=== PATIENT | female | born 1935 | race Caucasian/White ===

== ENCOUNTER 2016-05-14 13:42 | Emergency (ER) | payer MEDICARE ==
--- NOTE | 2016-05-14 16:16 | ERNOTE ---
Medical Problem HPI - Narrative Date of Service: 05/14/16 - General Chief Complaint: General Assessment Time Seen by Provider: 05/14/16 15:04 Source: patient Exam Limitations: no limitations - Immun/Allergies/Home Medications Immunizations: IMMUNIZATION HX Immunizations Up to Date Yes History of Influenza Vaccine No Hx Pneumococcal Vaccination No Allergies/Adverse Reactions: Allergies Sulfa (Sulfonamide Antibiotics) Allergy (Unknown, Verified 05/14/16 13:54) Home Medications: HOME MEDICATIONS NK [No Home Medication] 05/14/16 [Last Taken Unknown] - History of Present History Narrative: 81-year-old female presenting to the emergency room today because she missed her doctor's appointment. Patient states she was seeing her doctor for left ear fullness that she has had for 2 years. States that ear fullness comes and goes. Date (Duration): 05/14/16 Timing: unsure, other - has been going on for about 2 years Review of Systems - Review of Systems Constitutional: Present: no symptoms reported. Absent: recent illness, fever, chills, diaphoresis, weakness, fatigue, decreased activity level EYE: Present: no symptoms reported ENT: Present: See HPI. Absent: ear pain, pulling on ears, nasal drainage, throat swelling Respiratory: Present: no symptoms reported Cardiology: Present: no symptoms reported Gastrointestinal/Abdominal: Present: no symptoms reported Genitourinary: Present: no symptoms reported Musculoskeletal: Present: no symptoms reported Skin: Present: no symptoms reported Neurological: Present: no symptoms reported Endocrine: Present: no symptoms reported Hematologic/Lymphatic: Present: no symptoms reported Psych: Present: no symptoms reported - Patient's Past Medical History Patient History - Medical: No pertinent hx Patient History - Cardiac/Respiratory: No pertinent hx Patient History - Cancer: No Hx of Cancer Patient History - Surgical Procedures: No surgical history Patient History - Other: AIDS LMP (females 10-50): Menopausal - Social History Living Situations: home Psych History: No pertinent hx Smoking Status: Former smoker - Immunizations Immunizations Up to Date: Yes Hx Pneumococcal Vaccination: No History of Influenza Vaccine: No Physical Exam - Physical Exam General Appearance: Present: wd/wn, alert, no apparent distress Eye Exam: Normal inspection: bilateral Ears, Nose, Throat: Present: normal ENT inspection - small amt of ear wax in right ear, left TM has some scaring Neck: Present: normal inspection Respiratory: Present: no respiratory distress Cardiovascular/Chest: Present: regular rate, rhythm Gastrointestinal/Abdominal: Present: normal bowel sounds Back Exam: Present: normal inspection Extremity Exam: Present: normal inspection Neurological Exam: Present: alert, oriented, normal mood/affect Skin Exam: Present: normal color Lymphatic Exam: Present: no adenopathy ED Progress - Vital Signs Patient's Vital Signs:: I have reviewed the patient's vital signs. Vital Signs: Vital Signs 05/14/16 13:48 Temperature 37.0 C Pulse Rate 103 H Respiratory 16 Rate Blood Pressure 127/71 O2 Sat by Pulse 96 Oximetry - Progress/Reassessment Chief Complaint: General Assessment Progress:: Unchanged Departure - Departure Clinical Impression: Ear congestion Qualifiers: Laterality: left Qualified Code(s): H93.8X2 - Other specified disorders of left ear Disposition: Home Follow Up Needed Condition: Stable Instructions: Allergic Rhinitis Additional Instructions: Continue previous home medications. Patient may try Flonase or Nasacort over- the-counter as directed for the next 5 days to see if it alleviates ear fullness. Patient is to follow up with primary care provider in the next week. Please return to the emergency room if conditions worsen.
[2016-05-14 17:19] VITALS: BP 124/70
== END 2016-05-14 16:17 | disposition home or self-care (01) ==
LOC: ER 13:42
DX: H93.8X2 Other specified disorders of left ear (principal); Z87.891 Personal history of nicotine dependence

== ENCOUNTER 2017-09-06 01:09 | Inpatient (IN) ==
--- NOTE | 2017-09-06 01:36 | ERNOTE ---
Neuro HPI ER Record Presenting Symptoms: weakness, confusion, difficulty walking Time Seen by Provider: 09/06/17 01:27 Source: family Exam Limitations: clinical condition, hard of hearing Immunizations: IMMUNIZATION HX Immunizations Up to Date Yes History of Influenza Vaccine No Hx Pneumococcal Vaccination No Allergies/Adverse Reactions: Allergies Allergy/AdvReac Type Severity Reaction Status Date / Time Sulfa (Sulfonamide Allergy Unknown Verified 09/06/17 02:15 Antibiotics) Home Medications: HOME MEDICATIONS NK [No Home Medication] 05/14/16 [Last Taken Unknown] - History of Present Illness Narrative: Pt had cellulitis last month and Onset: gradual onset Severity: moderate - Character of Deficits New weakness: Present: general (diffuse) Additional Deficits: Present: decrease ability to stand Baseline Cognition: Present: alert but disoriented to time Associated Symptoms: Reports: confused Prior Treament: Reports: recently seen, treated by physician - for cellulitis Review of Systems - Review of Systems Constitutional: Present: fatigue, malaise, decreased activity level. Absent: recent illness, fever EYE: Absent: vision changes ENT: Absent: nose congestion, nasal drainage Respiratory: Present: shortness of breath, orthopnea. Absent: cough Cardiology: Present: palpitations, edema. Absent: chest pain, syncope Gastrointestinal/Abdominal: Absent: nausea, vomiting Genitourinary: Absent: frequency, pain, dysuria Musculoskeletal: Absent: back pain, muscle pain Skin: Present: rash, change in color - b/l LE. Neurological: Present: dizziness/light-headedness Endocrine: Present: excessive sweating, flushing Psych: Present: anxiety Social History: Preferred Language Greek Smoking Status Former smoker Psych History No pertinent hx Alcohol Use none Drug Use none Physical Exam - Physical Exam General Appearance: Present: wd/wn, alert, mild distress Head Exam: Present: normal inspection, no evidence of injury Ears, Nose, Throat: Present: normal ENT inspection Neck: Present: normal inspection, nontender Respiratory: Present: normal breath sounds, no accessory muscle use, lungs clear Cardiovascular/Chest: Present: no murmur, tachycardia Gastrointestinal/Abdominal: Present: normal bowel sounds, nontender, nondistended Back Exam: Present: no CVA tenderness Extremity Exam: Present: extremity edema Neurological Exam: Present: alert, no motor/sensory deficits, devops II-XII nml as tested, other - some confusion at times, not consistent Skin Exam: Present: skin rash - erythema to both LE below the knee with some weeping. no open ulcers. Lymphatic Exam: Present: no adenopathy [place] Coma Scale - Assess Eye Opening: To Voice Motor: Obeys Commands Verbal: Oriented - Total Coma Scale Total: 14 ED Progress - Results and Orders Patient's Lab Results:: I have reviewed the patient's lab results. Results and Orders: Laboratory Tests 09/06/17 09/06/17 09/06/17 01:40 01:40 01:40 WBC 16.4 H Hgb 13.9 Hct 45.9 Plt Count 426 Neutrophils % 86.2 H D-Dimer 2.42 H Sodium 142 Potassium 4.3 Chloride 106 BUN 13 Creatinine 0.89 Random Glucose 152 H Lactic Acid, Venous Calcium 8.3 Total Bilirubin 0.4 AST 28 ALT 22 Alkaline Phosphatase 81 Total Protein 7.0 Albumin 2.9 L Urine Color Urine Appearance Urine pH Ur Specific [place] Urine Protein Urine Glucose (UA) Urine Ketones Urine Blood Urine Nitrate Urine Bilirubin Urine Urobilinogen Ur Leukocyte Esterase Urine RBC Urine WBC Ur Epithelial Cells Urine Bacteria Urine Culture Comments 09/06/17 09/06/17 01:40 02:40 WBC Hgb Hct Plt Count Neutrophils % D-Dimer Sodium Potassium Chloride BUN Creatinine Random Glucose Lactic Acid, Venous 1.8 Calcium Total Bilirubin AST ALT Alkaline Phosphatase Total Protein Albumin Urine Color Yellow Urine Appearance Clear Urine pH 8.0 H Ur Specific [place] 1.020 Urine Protein Negative Urine Glucose (UA) Negative Urine Ketones 5 Urine Blood Negative Urine Nitrate Negative Urine Bilirubin Negative Urine Urobilinogen Normal Ur Leukocyte Esterase Negative Urine RBC None seen Urine WBC None seen Ur Epithelial Cells None seen Urine Bacteria None seen Urine Culture Comments Culture to follow - Vital Signs Patient's Vital Signs:: I have reviewed the patient's vital signs. Vital Signs: Vital Signs 09/06/17 01:18 Temperature 37.9 C Pulse Rate 129 H Respiratory Rate 36 H Blood Pressure 148/68 O2 Sat by Pulse Oximetry 100 - EKG EKG: supraventricular tachycardia, RBBB EKG read: Interp. 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 - Progress/Reassessment Chief Complaint: Altered Mental Status Progress:: Improved Progress Note-Subjective: 09/06/17 04:29 Spoke to [facility] hospitalist, she agrees to admit for cellulitis , failure of out pt therapy and hypoxia. 09/06/17 04:34 pt blood pressure did go down to 80/ 47 and IV fluids were reinitiated. Blood pressure immediately increased to 116/72. Departure Clinical Impression: Hypoxia Lower extremity cellulitis Qualifiers: Laterality: unspecified laterality Qualified Code(s): L03.119 - Cellulitis of unspecified part of limb - Departure Disposition: Still a patient Condition: Fair
[2017-09-06 01:49] LABS: Hematocrit 45.9 % (37.0-47.0); Hemoglobin 13.9 gm/dL (12.5-16.0); Mean Cell Volume 95.8 fl (78-100); Mean Corpuscular Hgb Conc 30.3 g/dl (32-36); Mean Platelet Volume 9.7 fl (8-12.5); Neutrophil # 14.1 K/mm3 (1.3-6.0); Neutrophil % 86.2 % (42-75.0); Platelet Count 426 K/mm3 (150-450); Red Blood Count 4.79 M/mm3 (4.2-5.4); Red Cell Distribution Width 14.9 % (11.5-14.0); White Blood Count 16.4 K/mm3 (4.0-10.5)
[2017-09-06 02:02] LABS: Albumin * 2.9 gm/dl (3.4-5.0); Anion Gap 10.5 mmol/L (6.8-13.8); BUN/Creatinine Ratio 14.6 (9.0-21.6); Bilirubin, Total 0.4 mg/dL (0.0-1.1); Ca. Corrected For Albumin 8.9 mg/dL (8.4-10.2); Calcium * 8.3 mg/dL (7.9-10.9); Carbon Dioxide 29.8 mmol/L (24-32.6); Potassium 4.3 mmol/L (3.4-4.6)
[2017-09-06 02:55] LABS: Urine Bilirubin Negative (NEGATIVE); Urine Blood Negative /ul (NEGATIVE); Urine Ketone 5 mg/dL (NEGATIVE); Urine Nitrite Negative (NEGATIVE); Urine Protein Negative (NEGATIVE); Urine Urobilinogen Normal (NORMAL)
[2017-09-06 03:00] LABS: Urine Appearance Clear (CLEAR); Urine Bacteria None Seen; Urine Color Yellow; Urine RBC None Seen /hpf (0-5); Urine WBC None Seen /hpf (0-5)
[2017-09-06] MEDS ORDERED: NORMAL SALINE 1,000 ML IV ONE ×2 (04:04→10:06)
[2017-09-06] MEDS ORDERED: PIPERACILLIN SODIUM/TAZOBACTAM 3.375 GM in DEXTROSE 5 % IN WATER 100 ML IV ONE ×2 (04:45)
[2017-09-06] MEDS ORDERED: NORMAL SALINE 1,000 ML IV PRN (06:00)
[2017-09-06] MEDS ORDERED: ACETAMINOPHEN 500 MG TABLET PO PRN (06:01)
--- NOTE | 2017-09-06 07:07 | HP ---
Chief Complaint - Chief Complaint Date of Service: 09/06/17 Time of Service: 06:33 Chief Complaint: weakness History of Present Illness: Pt is an 82 yr old female who per family has no prior medical history. She comes in this morning with family who states she lives alone in a trailer with neighboring family who frequently check in on her. They believe she has underlying dementia, but haven't followed up with their PCP regarding this, she does see Rosina Richmond here in [facility]. Per her daughter she has been treated within the past month for bilateral lower extremity cellulitis with Cephalexin she believes it was getting better until today the patient complained of not feeling well-no specific complaint and was unable to walk to get in the car so an EMS was called. Pt is an overall poor historian, she is unable to provide any details to the event. Her daughter describes her breathing rapid and she was not responding. In the ER work up consisted of a chest CT for elevated D- dime which was negative for PE, infiltrate or PN. She was hypotensive with SBP in the 80's, EKG revealed tachycardia with a rate of 129. Initial troponin elevated at 0.25, initial lactic acid was 1.8, but on repeat was elevated at 2.8. WBC elevated at 16.4. Blood cultures are pending, UA was negative. 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 Medical History (Last Updated 09/06/17 @ 05:20 by Pallavi Costa RN) Hypercholesteremia Family History: Family History (Last Updated 09/06/17 @ 05:21 by Pallavi Costa RN) Mother Diabetes Social History: Patient Lives/Resources Home Utilized Occupation retired Preferred Language Sinhala Do you have any nondenominational or Yes: Roman Catholic cultural preference? Smoking Status Former smoker Have you smoked in the past 12 No months Psych History No pertinent hx Alcohol Use none Drug Use none Review Of Systems (GEN) - Review of Systems Generalized/Overall Review: Present: Weakness, Malaise EENTM: Present: No Symptoms Reported Respiratory: Present: Cough, Shortness of Breath, Wheezing Cardiac: Present: No Symptoms Reported Abdominal: Present: No Symptoms Reported Genitourinary: Present: No Symptoms Reported Musculoskeletal: Present: Back Pain Neurological: Present: No Symptoms Reported Skin: Present: Rash - jay lower extremities, Change in Color Endocrine: Present: No Symptoms Reported Immunizations: IMMUNIZATION HX Immunizations Up to Date Yes History of Influenza Vaccine No Hx Pneumococcal Vaccination No Allergies/Adverse Reactions: Allergies Allergy/AdvReac Type Severity Reaction Status Date / Time Sulfa (Sulfonamide Allergy Unknown Verified 09/06/17 05:22 Antibiotics) Home Medications: HOME MEDICATIONS Acetaminophen [Tylenol] 500 mg PO Q6H PRN 09/06/17 [Last Taken Unknown] Exam - Exam Vital Signs: Vital Signs - Last Taken Temp 37.0 C 09/06/17 05:34 Pulse 108 H 09/06/17 05:34 Resp 24 H 09/06/17 05:34 BP 89/69 L 09/06/17 05:34 Pulse Ox 100 09/06/17 05:34 Constitutional: Present: Alert, Cooperative, Elderly ENT Exam: Present: normal ENT inspection, hard of hearing, dry mucous membranes Eye Exam: bilateral eye: normal inspection Neck: Present: non-tender, full range of motion, supple Back Exam: Present: normal inspection, no vertebral tenderness, decreased range of motion, muscle spasm Breasts: Present: Exam deferred Respiratory: Present: chest non-tender, no respiratory distress, no accessory muscle use, decreased breath sounds Cardiovascular/Chest: Present: normal peripheral pulses, no chest tenderness, no edema, no gallop, no JVD, no murmur, tachycardia Peripheral Pulses: dorsalis-pedis (R): 2+, dorsalis-pedis (L): 2+, radial (R): 2 +, radial (L): 2+ Abdomen: Present: Normal bowel sounds, soft, nontender, nondistended, no rebound tenderness, no hepatospenomegaly, no masses Extremity: Present: normal range of motion, no pedal edema, no calf tenderness, inflammation, leg pain Skin Exam: Present: other - erythema and dryness Lymphatic: Present: no adenopathy Neurologic: Present: alert, motor weakness Appearance: Present: appropriate appearance, appropriate insight, neat, no memory impairment Eye contact: Present: cooperative, good eye contact, normal speech Thoughts: Present: no apparent hallucination Diagnostic Studies: Abnormal Lab Results 09/06/17 09/06/17 09/06/17 Range/Units 01:40 01:40 01:40 WBC 16.4 H (4.0-10.5) K/mm3 MCHC 30.3 L (32-36) g/dl RDW 14.9 H (11.5-14.0) % Immature Gran % (Auto) 0.70 H (0.001-0.429) % Immature Gran # (Auto) 0.11 H (0.000-0.0310) K/mm3 Neutrophils % 86.2 H (42-75.0) % Lymphocytes % 7.3 L (20-51) % Neutrophils # 14.1 H (1.3-6.0) K/mm3 Lymphocytes # 1.20 L (1.5-3.5) k/mm3 D-Dimer 2.42 H (0.19-0.49) ug/mL Plasma Sodium 143 H (130-142) mmol/L Random Glucose 152 H (70-110) mg/dL Lactic Acid, Venous (0.4-2.0) mmol/L Troponin I (0.00-0.10) ng/ml Albumin 2.9 L (3.4-5.0) gm/dl Urine pH (5.0-7.0) pH 09/06/17 09/06/17 09/06/17 Range/Units 01:40 02:40 05:46 WBC (4.0-10.5) K/mm3 MCHC (32-36) g/dl RDW (11.5-14.0) % Immature Gran % (Auto) (0.001-0.429) % Immature Gran # (Auto) (0.000-0.0310) K/mm3 Neutrophils % (42-75.0) % Lymphocytes % (20-51) % Neutrophils # (1.3-6.0) K/mm3 Lymphocytes # (1.5-3.5) k/mm3 D-Dimer (0.19-0.49) ug/mL Plasma Sodium (130-142) mmol/L Random Glucose (70-110) mg/dL Lactic Acid, Venous 2.5 H* (0.4-2.0) mmol/L Troponin I 0.251 H* (0.00-0.10) ng/ml Albumin (3.4-5.0) gm/dl Urine pH 8.0 H (5.0-7.0) pH Laboratory Results WBC 16.4 K/mm3 (4.0-10.5) H 09/06/17 01:40 RBC 4.79 M/mm3 (4.2-5.4) 09/06/17 01:40 Hgb 13.9 gm/dL (12.5-16.0) 09/06/17 01:40 Hct 45.9 % (37.0-47.0) 09/06/17 01:40 MCV 95.8 fl (78-100) 09/06/17 01:40 MCH 29.0 pg (27-31) 09/06/17 01:40 MCHC 30.3 g/dl (32-36) L 09/06/17 01:40 RDW 14.9 % (11.5-14.0) H 09/06/17 01:40 Plt Count 426 K/mm3 (150-450) 09/06/17 01:40 MPV 9.7 fl (8-12.5) 09/06/17 01:40 Immature Gran % (Auto) 0.70 % (0.001-0.429) H 09/06/17 01:40 Immature Gran # (Auto) 0.11 K/mm3 (0.000-0.0310) H 09/06/17 01:40 Neutrophils % 86.2 % (42-75.0) H 09/06/17 01:40 Lymphocytes % 7.3 % (20-51) L 09/06/17 01:40 Monocytes % 4.4 % (0.0-9) 09/06/17 01:40 Eosinophils % 1.1 % (0.0-3.0) 09/06/17 01:40 Basophils % 0.3 % (0.0-1.0) 09/06/17 01:40 Nucleated RBC % 0.0 k/mm3 (0-1) 09/06/17 01:40 Neutrophils # 14.1 K/mm3 (1.3-6.0) H 09/06/17 01:40 Lymphocytes # 1.20 k/mm3 (1.5-3.5) L 09/06/17 01:40 Monocytes # 0.7 k/mm3 (0.0-1.0) 09/06/17 01:40 Eosinophils # 0.2 k/mm3 (0.0-0.7) 09/06/17 01:40 Absolute Basophils 0.1 k/mm3 (0.0-0.1) 09/06/17 01:40 D-Dimer 2.42 ug/mL (0.19-0.49) H 09/06/17 01:40 Sodium 142 mmol/L (132-142) 09/06/17 01:40 Plasma Sodium 143 mmol/L (130-142) H 09/06/17 01:40 Potassium 4.3 mmol/L (3.4-4.6) 09/06/17 01:40 Chloride 106 mmol/L (97-106) 09/06/17 01:40 Carbon Dioxide 29.8 mmol/L (24-32.6) 09/06/17 01:40 Anion Gap 10.5 mmol/L (6.8-13.8) 09/06/17 01:40 BUN 13 mg/dL (3-23) 09/06/17 01:40 Creatinine 0.89 mg/dL (0.4-1.4) 09/06/17 01:40 Est GFR (Non-Af Amer) 65 mL/min (60-130) 09/06/17 01:40 BUN/Creatinine Ratio 14.6 (9.0-21.6) 09/06/17 01:40 Random Glucose 152 mg/dL (70-110) H 09/06/17 01:40 Lactic Acid, Venous 2.5 mmol/L (0.4-2.0) H* 09/06/17 05:46 Calcium 8.3 mg/dL (7.9-10.9) 09/06/17 01:40 Calcium Adj for Albumin 8.9 mg/dL (8.4-10.2) 09/06/17 01:40 Total Bilirubin 0.4 mg/dL (0.0-1.1) 09/06/17 01:40 AST 28 U/L (0-48) 09/06/17 01:40 ALT 22 U/L (19-67) 09/06/17 01:40 Alkaline Phosphatase 81 U/L (50-170) 09/06/17 01:40 Troponin I 0.251 ng/ml (0.00-0.10) H* 09/06/17 01:40 Total Protein 7.0 gm/dL (6.2-8.2) 09/06/17 01:40 Albumin 2.9 gm/dl (3.4-5.0) L 09/06/17 01:40 Urine Color Yellow 09/06/17 02:40 Urine Appearance Clear (CLEAR) 09/06/17 02:40 Urine pH 8.0 pH (5.0-7.0) H 09/06/17 02:40 Ur Specific [place] 1.020 SP.GR. (1.005-1.010) 09/06/17 02:40 Urine Protein Negative mg/dL (NEGATIVE) 09/06/17 02:40 Urine Glucose (UA) Negative mg/dL (NEGATIVE) 09/06/17 02:40 Urine Ketones 5 mg/dL (NEGATIVE) 09/06/17 02:40 Urine Blood Negative /ul (NEGATIVE) 09/06/17 02:40 Urine Nitrate Negative (NEGATIVE) 09/06/17 02:40 Urine Bilirubin Negative mg/dl (NEGATIVE) 09/06/17 02:40 Urine Urobilinogen Normal EU/dl (NORMAL) 09/06/17 02:40 Ur Leukocyte Esterase Negative /ul (NEGATIVE) 09/06/17 02:40 Urine RBC None seen /hpf (0-5) 09/06/17 02:40 Urine WBC None seen /hpf (0-5) 09/06/17 02:40 Ur Epithelial Cells None seen /hpf (0-5) 09/06/17 02:40 Urine Bacteria None seen (NONE) 09/06/17 02:40 Urine Culture Comments Culture to follow 09/06/17 02:40 Assessment/Plan - Assessment/Plan (1) Sepsis associated hypotension Assessment: Unclear etiology, recent cellulitis of bilateral lower extremities with failed outpt treatment. Blood cultures pending. Hypotension improved with IV fluid. - 0.9NS @ 126ml/hr - Repeat lactic in 4H - VS Q4H - Vancomycin 1gm [id number] to dose Problem: Acute (2) Elevated troponin Assessment: - Telemetry - Repeat troponin 6H post initial - Repeat EKG with CP Problem: Acute (3) Lower extremity cellulitis Assessment: Failed outpt treatment with Cephalexin, will add Vancomycin for broad spectrum antibiotic with MRSA coverage. Problem: Chronic Qualifiers: Laterality: unspecified laterality Qualified Code(s): L03.119 - Cellulitis of unspecified part of limb (4) Back pain Assessment: No recent trauma or falls, however poor historian. Per family this is chronic which she takes Tylenol for at home. If worsens would consider imaging to r/o fx. - Tylenol PRN - K pad for comfort Problem: Chronic Qualifiers: Back pain location: low back pain
[2017-09-06] MEDS ORDERED: VANCOMYCIN HCL 0.75 GM in DEXTROSE 5 % IN WATER 250 ML IV SCH ×2 (07:30)
[2017-09-06] MEDS ORDERED: SACCHAROMYCES BOULARDII 250 MG CAPSULE PO SCH (09:00)
[2017-09-06] MEDS ORDERED: ASPIRIN 81 MG TAB.CHEW PO STA (10:09)
[2017-09-06] MEDS ORDERED: CLOPIDOGREL BISULFATE 75 MG TABLET PO STA (10:09)
[2017-09-06] MEDS ORDERED: HEPARIN SODIUM,PORCINE 5,000 UNITS/ML VIAL IV ONE (10:09)
--- NOTE | 2017-09-06 10:20 | DS ---
Transfer Discharge Summary - Diagnosis(s)/Problems (1) Lower extremity cellulitis Problem: Acute (2) Sepsis associated hypotension Problem: Acute (3) Elevated troponin Problem: Acute (4) AMI (acute myocardial infarction) Problem: Suspected - Course Description of Stay: Alva Chino is an 82-year-old female who was in her usual state of health at home. She lives by herself and a mobile home and is looked after by her children and grandchildren. Over the past month she has become more demented. On admission she was unable to stand and obviously her ADLs have declined to the point she could not care for herself. She was brought to the hospital per EMS. She was found to have cellulitis in both lower extremities there are red hot to touch but not draining. She was hypotensive with systolic of 80 and tachycardia with rate of 129. Her initial troponin level was 0.25 but today's is now 2.497. Her lactic acid initially was 1.8 but has climbed to 2.8. The white count is 16,400 with 86% neutrophils and 11% bands. Her d- dimer is also elevated at 2.42. This morning she has become more hypotensive with systolic dropping into the low 70s systolic. She is demented and unable to communicate with us. She has been receiving IV fluids and IV antibiotics through the night. 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 There is a lot of tremor artifact. We have started bolusing with IV fluids and her last pressure systolic is 79. Since the patient is a full code, is hemodynamically stable, has probably had a cardiac event, she will need to be transferred to a tertiary facility and has interventional capabilities. The patient's daughter who is her POA and she has given consent to transfer to [facility] in [place]. Procedures Performed: none Procedures: We have started the ACS protocol with aspirin and Plavix and heparin. - Results and Findings Results and Findings: Laboratory Results - last 24 hr 09/06/17 09/06/17 09/06/17 01:40 01:40 01:40 WBC 16.4 H RBC 4.79 Hgb 13.9 Hct 45.9 MCV 95.8 MCH 29.0 MCHC 30.3 L RDW 14.9 H Plt Count 426 MPV 9.7 Immature Gran % (Auto) 0.70 H Immature Gran # (Auto) 0.11 H Neutrophils % 86.2 H Lymphocytes % 7.3 L Monocytes % 4.4 Eosinophils % 1.1 Basophils % 0.3 Nucleated RBC % 0.0 Neutrophils # 14.1 H Lymphocytes # 1.20 L Monocytes # 0.7 Eosinophils # 0.2 Absolute Basophils 0.1 D-Dimer 2.42 H Sodium 142 Plasma Sodium 143 H Potassium 4.3 Chloride 106 Carbon Dioxide 29.8 Anion Gap 10.5 BUN 13 Creatinine 0.89 Est GFR (Non-Af Amer) 65 BUN/Creatinine Ratio 14.6 Random Glucose 152 H Lactic Acid, Venous Calcium 8.3 Calcium Adj for Albumin 8.9 Total Bilirubin 0.4 AST 28 ALT 22 Alkaline Phosphatase 81 Troponin I Total Protein 7.0 Albumin 2.9 L Urine Color Urine Appearance Urine pH Ur Specific [place] Urine Protein Urine Glucose (UA) Urine Ketones Urine Blood Urine Nitrate Urine Bilirubin Urine Urobilinogen Ur Leukocyte Esterase Urine RBC Urine WBC Ur Epithelial Cells Urine Bacteria Urine Culture Comments 09/06/17 09/06/17 09/06/17 01:40 01:40 02:40 WBC RBC Hgb Hct MCV MCH MCHC RDW Plt Count MPV Immature Gran % (Auto) Immature Gran # (Auto) Neutrophils % Lymphocytes % Monocytes % Eosinophils % Basophils % Nucleated RBC % Neutrophils # Lymphocytes # Monocytes # Eosinophils # Absolute Basophils D-Dimer Sodium Plasma Sodium Potassium Chloride Carbon Dioxide Anion Gap BUN Creatinine Est GFR (Non-Af Amer) BUN/Creatinine Ratio Random Glucose Lactic Acid, Venous 1.8 Calcium Calcium Adj for Albumin Total Bilirubin AST ALT Alkaline Phosphatase Troponin I 0.251 H* Total Protein Albumin Urine Color Yellow Urine Appearance Clear Urine pH 8.0 H Ur Specific [place] 1.020 Urine Protein Negative Urine Glucose (UA) Negative Urine Ketones 5 Urine Blood Negative Urine Nitrate Negative Urine Bilirubin Negative Urine Urobilinogen Normal Ur Leukocyte Esterase Negative Urine RBC None seen Urine WBC None seen Ur Epithelial Cells None seen Urine Bacteria None seen Urine Culture Comments Culture to follow 09/06/17 09/06/17 09/06/17 05:46 08:15 08:15 WBC RBC Hgb Hct MCV MCH MCHC RDW Plt Count MPV Immature Gran % (Auto) Immature Gran # (Auto) Neutrophils % Lymphocytes % Monocytes % Eosinophils % Basophils % Nucleated RBC % Neutrophils # Lymphocytes # Monocytes # Eosinophils # Absolute Basophils D-Dimer Sodium Plasma Sodium Potassium Chloride Carbon Dioxide Anion Gap BUN Creatinine 0.91 Est GFR (Non-Af Amer) BUN/Creatinine Ratio Random Glucose Lactic Acid, Venous 2.5 H* Calcium Calcium Adj for Albumin Total Bilirubin AST ALT Alkaline Phosphatase Troponin I 2.497 H* Total Protein Albumin Urine Color Urine Appearance Urine pH Ur Specific [place] Urine Protein Urine Glucose (UA) Urine Ketones Urine Blood Urine Nitrate Urine Bilirubin Urine Urobilinogen Ur Leukocyte Esterase Urine RBC Urine WBC Ur Epithelial Cells Urine Bacteria Urine Culture Comments - Medications Medications: Active Medications Sodium Chloride (Sodium Chloride 0.9%) 1,000 mls @ 126 mls/hr IV .Q7H57M PRN PRN Reason: HYDRATION Stop: 10/06/17 06:01 Last Infusion: 09/06/17 10:05 Dose: 999 mls/hr Vancomycin HCl 0.75 gm/ (Dextrose/Water) 250 mls @ 140 mls/hr IV Q12H [facility]; Protocol Stop: 10/06/17 07:31 Last Infusion: 09/06/17 10:05 Dose: Infused Sodium Chloride (Sodium Chloride 0.9%) 1,000 mls @ 999 mls/hr IV .Q1H1M ONE Stop: 09/06/17 11:06 Last Admin: 09/06/17 10:09 Dose: 999 mls/hr Discontinued Medications Sodium Chloride (Sodium Chloride 0.9%) 1,000 mls @ 999 mls/hr IV .Q1H1M ONE Stop: 09/06/17 05:04 Last Infusion: 09/06/17 05:06 Dose: Infused Piperacillin Sod/Tazobactam (Sod 3.375 gm/ Dextrose/Water) 100 mls @ 200 mls/ hr IV ONCE ONE Stop: 09/06/17 05:14 Last Admin: 09/06/17 04:54 Dose: 200 mls/hr - Disposition Disposition: Short Term Hospital Inpatient Condition: Critical Discharge Date: 09/06/17 Discharge Time: 10:30
[2017-09-06 10:54] VITALS: BP 68/45
== END 2017-09-06 11:00 | disposition short-term general hospital (02) | DRG 871 ==
LOC: ER 01:09 → MS 04:13
PROVIDERS: ADMIT Nurse Practitioner Gerontology; ATTEND Family Medicine
CPT/HCPCS: 36415; 71275; 80053; 81001; 82565; 83605; 84484; 85025; 85379; 87040; 87086; 93005; 94762; 96361; 96365; 99284

== ENCOUNTER 2018-08-13 16:41 | Inpatient (IN) ==
[2018-08-13] MEDS ORDERED: NORMAL SALINE 1,000 ML IV ONE (16:52)
[2018-08-13] MEDS ORDERED: ACETAMINOPHEN 500 MG TABLET PO ONE (16:52)
--- NOTE | 2018-08-13 16:59 | ERNOTE ---
Neuro HPI ER Record Presenting Symptoms: confusion - Although I suspect some baseline dementia Time Seen by Provider: 08/13/18 16:49 Source: EMS Exam Limitations: dementia Immunizations: IMMUNIZATION HX Immunizations Up to Date Yes History of Influenza Vaccine More Information Required Hx Pneumococcal Vaccination More Information Required Allergies/Adverse Reactions: Allergies Allergy/AdvReac Type Severity Reaction Status Date / Time aspirin Allergy Mild Itching Verified 10/23/17 14:15 Sulfa (Sulfonamide Allergy Unknown Verified 10/23/17 14:15 Antibiotics) Home Medications: HOME MEDICATIONS Acetaminophen [Tylenol] 500 mg PO Q6H PRN 09/06/17 [Last Taken Unknown] aspirin 325 mg tablet 325 mg PO DAILY 09/20/17 [Last Taken Unknown] metoprolol tartrate 25 mg tablet 12.5 mg PO BID #60 tab 10/14/17 [Last Taken Unknown] potassium chloride ER 10 mEq capsule,extended release See Rx Instructions .ROUTE .COMPLEX #120 unspecified 04/28/18 [Last Taken Unknown] atorvastatin 20 mg tablet 20 mg PO DAILY #90 tab 07/07/18 [Last Taken Unknown] furosemide 40 mg tablet 40 mg PO DAILY #90 tab 07/07/18 [Last Taken Unknown] - History of Present Illness Narrative: Patient is brought in by ambulance service and she is been getting progressively more confused and had running a fever apparently at home. Patient is not able to assist much in her history or physical do what I suspect is underlying dementia. Onset: cannot confirm onset Severity: moderate - Character of Deficits Additional Deficits: Present: weakness Baseline Cognition: Present: poor alertness Baseline Gait: Present: uses a cane/walker Associated Symptoms: Reports: fever/chills, altered mental status Prior Treament: Reports: recently seen Review of Systems - Review of Systems Constitutional: Present: See HPI EYE: Present: no symptoms reported ENT: Present: no symptoms reported Respiratory: Present: no symptoms reported Cardiology: Present: no symptoms reported Gastrointestinal/Abdominal: Present: no symptoms reported Genitourinary: Present: no symptoms reported Musculoskeletal: Present: no symptoms reported Skin: Present: no symptoms reported Neurological: Present: See HPI Endocrine: Present: no symptoms reported Hematologic/Lymphatic: Present: no symptoms reported Psych: Present: no symptoms reported Medical History (Updated 08/13/18 @ 16:58 by Steven Matute DO) Peripheral edema (Chronic) Stasis dermatitis of both legs (Chronic) Myocardial infarction (Resolved) Cellulitis of lower extremity (Resolved) Onset Date: Unknown Hypercholesteremia (Chronic) Onset Date: Unknown Dementia Surgical History: Surgical History (Updated 09/20/17 @ 15:26 by Rosina Rodriguez RN) H/O heart surgery Onset Date: ~08/2017 Stent placement Family History: Family History (Updated 09/16/17 @ 14:27 by Karli Mcclendon RN) Mother Diabetes Father Lung cancer Social History: Preferred Language Gren[place] Smoking Status Unknown if ever smoked Psych History No pertinent hx (Last Updated 04/10/18 @ 14:32 by BRAD Mayorga) No Social History Section defined Physical Exam - Physical Exam General Appearance: Present: wd/wn, alert, moderate distress Head Exam: Present: normal inspection, no evidence of injury Eye Exam: Normal inspection: bilateral, PERRL: bilateral Ears, Nose, Throat: Present: normal pharynx, dry mucous membranes Neck: Present: normal inspection, nontender Respiratory: Present: no respiratory distress, normal breath sounds, no accessory muscle use, chest nontender, lungs clear Cardiovascular/Chest: Present: no murmur, normal peripheral pulses, tachycardia Gastrointestinal/Abdominal: Present: normal bowel sounds, nontender, nondistended, soft, no organomegaly Rectal Exam: Present: deferred Pelvic Exam: Present: deferred Back Exam: Present: normal inspection, normal range of motion Extremity Exam: Present: normal inspection, non-tender, no edema, normal range of motion Neurological Exam: Present: normal mood/affect, disoriented to person, disoriented to time, disoriented to place, disoriented to situation Skin Exam: Present: normal color, warm/dry Lymphatic Exam: Present: no adenopathy Progress - Results and Orders Patient's Lab Results:: I have reviewed the patient's lab results. - Vital Signs Patient's Vital Signs:: I have reviewed the patient's vital signs. Vital Signs: Vital Signs 08/13/18 16:41 Temperature 38.7 C H Pulse Rate 129 H Respiratory Rate 19 Blood Pressure 112/83 O2 Sat by Pulse Oximetry 88 L - X-Ray X-Ray #1 X-Ray: chest Interpretation: Reviewed by me - Progress/Reassessment Chief Complaint: Altered Mental Status Plan - Plan Plan: Patient was given 1 L normal saline in the ED. His would appear to have community-acquired pneumonia we will start the patient on Rocephin and Zithro max. Her O2 saturation increased considerably on just 2 L nasal cannula. Departure Clinical Impression: Hypoxia Pneumonia Qualifiers: Pneumonia type: due to unspecified organism Laterality: bilateral Lung location: lower lobe of lung Qualified Code(s): J18.1 - Lobar pneumonia, unspecified organism - Departure Disposition: Still a patient Condition: Fair Referrals: Rosina Mesa FNP [Primary Care Provider] -
[2018-08-13 17:14] LABS: Hemoglobin 13.2 gm/dL (12.5-16.0); Mean Cell Volume 94.9 fl (78-100); Mean Corpuscular Hemoglobin 29.1 pg (27-31); Mean Corpuscular Hgb Conc 30.7 g/dl (32-36); Mean Platelet Volume 9.6 fl (8-12.5); Neutrophil # 14.2 K/mm3 (1.3-6.0); Neutrophil % 87.3 % (42-75.0); Platelet Count 415 K/mm3 (150-450); Red Blood Count 4.53 M/mm3 (4.2-5.4); Red Cell Distribution Width 14.4 % (11.5-14.0); White Blood Count 16.3 K/mm3 (4.0-10.5)
[2018-08-13 17:18] LABS: Urine Bilirubin Negative (NEGATIVE); Urine Blood Negative /ul (NEGATIVE); Urine Ketone Negative (NEGATIVE); Urine Nitrite Negative (NEGATIVE); Urine Protein Negative (NEGATIVE); Urine Specific Gravity 1.015 SP.GR. (1.005-1.010); Urine Urobilinogen Normal (NORMAL); Urine pH 7.5 pH (5.0-7.0)
[2018-08-13 17:23] LABS: ALT 17 U/L (19-67); AST 23 U/L (0-48); Albumin * 3.6 gm/dl (3.4-5.0); Alkaline Phosphatase * 97 U/L (50-170); Anion Gap 12.2 mmol/L (6.8-13.8); BNP * 393 pg/mL (5-550); BUN/Creatinine Ratio 15.1 (9.0-21.6); Bilirubin, Total 0.4 mg/dL (0.0-1.1); Blood Urea Nitrogen 13 mg/dL (3-23); Carbon Dioxide 34.5 mmol/L (24-32.6); Chloride 101 mmol/L (97-106); Glucose * 132 mg/dL (70-110); Potassium 3.7 mmol/L (3.4-4.6); Sodium 144 mmol/L (132-142); Total Protein 7.9 gm/dL (6.2-8.2); Troponin I Less than 0.017 ng/mL (0.00-0.10)
[2018-08-13 17:27] LABS: Urine Appearance Clear (CLEAR); Urine Bacteria 1+; Urine Color Yellow; Urine RBC 0-5 /hpf (0-5); Urine WBC 0-5 /hpf (0-5)
[2018-08-13] MEDS ORDERED: cefTRIAXone SODIUM 1,000 MG/100 ML BAG IV ONE (17:47)
--- NOTE | 2018-08-13 18:37 | HP ---
Chief Complaint - Chief Complaint Date of Service: 08/13/18 Time of Service: 18:00 Chief Complaint: Confusion History of Present Illness: 83-year-old female with a past medical history of dementia, cellulitis, hyperlipidemia, myocardial infarct, peripheral edema, stasis dermatitis presents from home with complaints of worsening confusion x1 day. Per her daughter and grandson who are at bedside the patient was doing fine this morning in her normal state when she began to develop agitation and confusion that worsened as the day progressed. EMS was called and she was brought to the emergency department. In the ER she was found to have a fever, leukocytosis, hypotension, tachycardia and hypoxia. Chest x-ray positive for bibasilar opacities. Medical History (Updated 08/13/18 @ 18:41 by Loli Asher MD) Peripheral edema (Chronic) Stasis dermatitis of both legs (Chronic) Myocardial infarction (Resolved) Cellulitis of lower extremity (Resolved) Onset Date: Unknown Hypercholesteremia (Chronic) Onset Date: Unknown Dementia Surgical History: Surgical History (Updated 08/13/18 @ 18:37 by Loli Asher MD) H/O heart surgery Onset Date: ~08/2017 Stent placement Family History: Family History (Updated 09/16/17 @ 14:27 by Karli Mcclendon RN) Mother Diabetes Father Lung cancer Social History: Preferred Language Cym[place] Smoking Status Unknown if ever smoked Psych History No pertinent hx (Last Updated 04/10/18 @ 14:32 by BRAD Mayorga) No Social History Section defined Review Of Systems (GEN) - Review of Systems Generalized/Overall Review: Present: Fever EENTM: Absent: Eye Pain Respiratory: Absent: Cough, Shortness of Breath Cardiac: Absent: Chest Pain Abdominal: Absent: Abdominal Pain Neurological: Present: Other - Confused Misc: All systems neg except as marked Immunizations: IMMUNIZATION HX Immunizations Up to Date Yes History of Influenza Vaccine More Information Required Hx Pneumococcal Vaccination More Information Required Allergies/Adverse Reactions: Allergies Allergy/AdvReac Type Severity Reaction Status Date / Time aspirin Allergy Mild Itching Verified 10/23/17 14:15 Sulfa (Sulfonamide Allergy Unknown Verified 10/23/17 14:15 Antibiotics) Home Medications: HOME MEDICATIONS Acetaminophen [Tylenol] 500 mg PO Q6H PRN 09/06/17 [Last Taken Unknown] aspirin 325 mg tablet 325 mg PO DAILY 09/20/17 [Last Taken Unknown] metoprolol tartrate 25 mg tablet 12.5 mg PO BID #60 tab 10/14/17 [Last Taken Unknown] potassium chloride ER 10 mEq capsule,extended release See Rx Instructions .ROUTE .COMPLEX #120 unspecified 04/28/18 [Last Taken Unknown] atorvastatin 20 mg tablet 20 mg PO DAILY #90 tab 07/07/18 [Last Taken Unknown] furosemide 40 mg tablet 40 mg PO DAILY #90 tab 07/07/18 [Last Taken Unknown] Exam - Exam Vital Signs: Vital Signs - Last Taken Temp 38.3 C H 08/13/18 17:58 Pulse 119 H 08/13/18 17:58 Resp 24 H 08/13/18 17:58 BP 113/33 08/13/18 17:58 Pulse Ox 94 08/13/18 17:58 Constitutional: Present: Alert, Cooperative, No distress, Elderly. Absent: Oriented x3 - Oriented to person only ENT Exam: Present: hearing grossly normal Eye Exam: bilateral eye: normal inspection, PERRL, EOMI Neck: Present: non-tender, trachea midline. Absent: lymphadenopathy (R), lymphadenopathy (L) Back Exam: Present: normal inspection, no CVA tenderness, no vertebral tenderness Respiratory: Present: lungs clear, no respiratory distress, no accessory muscle use, No wheezing. Absent: crackles, rhonchi Cardiovascular/Chest: Present: normal peripheral pulses, regular rate, rhythm, no murmur Peripheral Pulses: dorsalis-pedis (R): 1+, dorsalis-pedis (L): 1+ Abdomen: Present: Normal bowel sounds, soft, nontender Extremity: Present: pedal edema - 1+ pitting bilateral Skin Exam: Present: warm/dry, no cyanosis, other - Erythema noted on left lower extremity, nontender to palpation Neurologic: Present: alert, normal mood/affect Appearance: Present: appropriate appearance, impaired insight Eye contact: Present: cooperative, good eye contact Thoughts: Present: normal mood /affect Diagnostic Studies: Abnormal Lab Results 08/13/18 08/13/18 08/13/18 Range/Units 16:48 17:00 17:00 WBC 16.3 H (4.0-10.5) K/mm3 MCHC 30.7 L (32-36) g/dl RDW 14.4 H (11.5-14.0) % Immature Gran % (Auto) 0.60 H (0.001-0.429) % Immature Gran # (Auto) 0.10 H (0.000-0.0310) K/mm3 Neutrophils % 87.3 H (42-75.0) % Lymphocytes % 6.1 L (20-51) % Neutrophils # 14.2 H (1.3-6.0) K/mm3 Lymphocytes # 0.99 L (1.5-3.5) k/mm3 pO2 (83.0-108.0) mmHg Total CO2 (19.0-24.0) mmol/L ABG O2 Sat (Measured) (94.0-98.0) % Sodium 144 H (132-142) mmol/L Plasma Sodium 145 H (130-142) mmol/L Carbon Dioxide 34.5 H (24-32.6) mmol/L Random Glucose 132 H (70-110) mg/dL Lactic Acid, Venous (0.4-2.0) mmol/L ALT 17 L (19-67) U/L Urine Bacteria 1+ H (NONE) 08/13/18 08/13/18 Range/Units 17:00 17:13 WBC (4.0-10.5) K/mm3 MCHC (32-36) g/dl RDW (11.5-14.0) % Immature Gran % (Auto) (0.001-0.429) % Immature Gran # (Auto) (0.000-0.0310) K/mm3 Neutrophils % (42-75.0) % Lymphocytes % (20-51) % Neutrophils # (1.3-6.0) K/mm3 Lymphocytes # (1.5-3.5) k/mm3 pO2 65.2 L (83.0-108.0) mmHg Total CO2 26.5 H (19.0-24.0) mmol/L ABG O2 Sat (Measured) 93.7 L (94.0-98.0) % Sodium (132-142) mmol/L Plasma Sodium (130-142) mmol/L Carbon Dioxide (24-32.6) mmol/L Random Glucose (70-110) mg/dL Lactic Acid, Venous 2.2 H* (0.4-2.0) mmol/L ALT (19-67) U/L Urine Bacteria (NONE) Laboratory Results WBC 16.3 K/mm3 (4.0-10.5) H 08/13/18 17:00 RBC 4.53 M/mm3 (4.2-5.4) 08/13/18 17:00 Hgb 13.2 gm/dL (12.5-16.0) 08/13/18 17:00 Hct 43.0 % (37.0-47.0) 08/13/18 17:00 MCV 94.9 fl (78-100) 08/13/18 17:00 MCH 29.1 pg (27-31) 08/13/18 17:00 MCHC 30.7 g/dl (32-36) L 08/13/18 17:00 RDW 14.4 % (11.5-14.0) H 08/13/18 17:00 Plt Count 415 K/mm3 (150-450) 08/13/18 17:00 MPV 9.6 fl (8-12.5) 08/13/18 17:00 Immature Gran % (Auto) 0.60 % (0.001-0.429) H 08/13/18 17:00 Immature Gran # (Auto) 0.10 K/mm3 (0.000-0.0310) H 08/13/18 17:00 87.3 % (42-75.0) H 08/13/18 17:00 6.1 % (20-51) L 08/13/18 17:00 4.2 % (0.0-9) 08/13/18 17:00 1.5 % (0.0-3.0) 08/13/18 17:00 0.3 % (0.0-1.0) 08/13/18 17:00 Nucleated RBC % 0.0 k/mm3 (0-1) 08/13/18 17:00 14.2 K/mm3 (1.3-6.0) H 08/13/18 17:00 0.99 k/mm3 (1.5-3.5) L 08/13/18 17:00 0.7 k/mm3 (0.0-1.0) 08/13/18 17:00 0.3 k/mm3 (0.0-0.7) 08/13/18 17:00 Absolute Basophils 0.1 k/mm3 (0.0-0.1) 08/13/18 17:00 pCO2 37.7 mmHg (32.0-45.0) 08/13/18 17:13 pO2 65.2 mmHg (83.0-108.0) L 08/13/18 17:13 HCO3 25.4 mmol/L (21.0-28.0) 08/13/18 17:13 Total CO2 26.5 mmol/L (19.0-24.0) H 08/13/18 17:13 Base Excess 1.5 mmol/L (-2.0-3.0) 08/13/18 17:13 ABG pH 7.45 (7.35-7.45) 08/13/18 17:13 ABG O2 Sat (Measured) 93.7 % (94.0-98.0) L 08/13/18 17:13 Sodium 144 mmol/L (132-142) H 08/13/18 17:00 145 mmol/L (130-142) H 08/13/18 17:00 Potassium 3.7 mmol/L (3.4-4.6) 08/13/18 17:00 Chloride 101 mmol/L (97-106) 08/13/18 17:00 Carbon Dioxide 34.5 mmol/L (24-32.6) H 08/13/18 17:00 12.2 mmol/L (6.8-13.8) 08/13/18 17:00 BUN 13 mg/dL (3-23) 08/13/18 17:00 0.86 mg/dL (0.4-1.4) 08/13/18 17:00 Est GFR (Non-Af Amer) 67 mL/min (60-130) 08/13/18 17:00 15.1 (9.0-21.6) 08/13/18 17:00 132 mg/dL (70-110) H 08/13/18 17:00 2.2 mmol/L (0.4-2.0) H* 08/13/18 17:00 Calcium 9.0 mg/dL (7.9-10.9) 08/13/18 17:00 Calcium Adj for Albumin 9.0 mg/dL (8.4-10.2) 08/13/18 17:00 0.4 mg/dL (0.0-1.1) 08/13/18 17:00 AST 23 U/L (0-48) 08/13/18 17:00 ALT 17 U/L (19-67) L 08/13/18 17:00 97 U/L (50-170) 08/13/18 17:00 Less than 0.017 ng/mL (0.00-0.10) 08/13/18 17:00 B-Natriuretic Peptide 393 pg/mL (5-550) 08/13/18 17:00 7.9 gm/dL (6.2-8.2) 08/13/18 17:00 3.6 gm/dl (3.4-5.0) 08/13/18 17:00 Yellow 08/13/18 16:48 Clear (CLEAR) 08/13/18 16:48 7.5 pH (5.0-7.0) 08/13/18 16:48 Ur Specific [place] 1.015 SP.GR. (1.005-1.010) 08/13/18 16:48 Negative mg/dL (NEGATIVE) 08/13/18 16:48 Negative mg/dL (NEGATIVE) 08/13/18 16:48 Negative mg/dL (NEGATIVE) 08/13/18 16:48 Negative /ul (NEGATIVE) 08/13/18 16:48 Negative (NEGATIVE) 08/13/18 16:48 Negative mg/dl (NEGATIVE) 08/13/18 16:48 Normal EU/dl (NORMAL) 08/13/18 16:48 Ur Leukocyte Esterase Negative /ul (NEGATIVE) 08/13/18 16:48 0-5 /hpf (0-5) 08/13/18 16:48 0-5 /hpf (0-5) 08/13/18 16:48 Ur Epithelial Cells 0-5 /hpf (0-5) 08/13/18 16:48 1+ (NONE) H 08/13/18 16:48 Culture to follow 08/13/18 16:48 Assessment/Plan - Narrative Narrative: 83-year-old female with a past medical history of dementia, cellulitis, hyperlipidemia, myocardial infarct, peripheral edema, stasis dermatitis presents from home with complaints of worsening confusion x1 day. In the ER she was found to have a fever, leukocytosis, hypotension, tachycardia and hypoxia. Chest x-ray positive for bibasilar opacities. She is admitted for further management of pneumonia. I will also start her on azithromycin. - Assessment/Plan (1) Pneumonia Assessment: Continue Rocephin and azithromycin. Chest x-ray shows bibasilar opacities. Problem: Acute Qualifiers: Pneumonia type: due to unspecified organism Laterality: bilateral Lung location: lower lobe of lung Qualified Code(s): J18.1 - Lobar pneumonia, unspecified organism (2) Altered mental status Assessment: Likely secondary to pneumonia in the setting of fever. Continue with antibiotics. Problem: Acute (3) Dementia Assessment: Stable no changes to medications. Problem: Chronic (4) Hypoxia Assessment: Continue with oxygen supplementation as needed. Problem: Acute (5) Hypercholesteremia Assessment: Resume home meds. Problem: Chronic
[2018-08-13] MEDS: AZITHROMYCIN 500 MG in DEXTROSE 5 % IN WATER 250 ML IV SCH ×2 (19:38)
[2018-08-13] MEDS: METOPROLOL TARTRATE 25 MG TABLET PO SCH (21:46)
[2018-08-14] MEDS: ACETAMINOPHEN 500 MG TABLET PO PRN ×2 (02:46→07:36)
[2018-08-14 05:40] LABS: Hematocrit 37.4 % (37.0-47.0); Hemoglobin 11.7 gm/dL (12.5-16.0); Mean Corpuscular Hemoglobin 29.4 pg (27-31); Mean Corpuscular Hgb Conc 31.3 g/dl (32-36); Mean Platelet Volume 9.8 fl (8-12.5); Neutrophil # 15.1 K/mm3 (1.3-6.0); Neutrophil % 92.8 % (42-75.0); Platelet Count 335 K/mm3 (150-450); Red Blood Count 3.98 M/mm3 (4.2-5.4); Red Cell Distribution Width 14.5 % (11.5-14.0); White Blood Count 16.3 K/mm3 (4.0-10.5)
[2018-08-14 05:57] LABS: Albumin * 2.8 gm/dl (3.4-5.0); Anion Gap 9.9 mmol/L (6.8-13.8); BUN/Creatinine Ratio 15.2 (9.0-21.6); Bilirubin, Total 0.6 mg/dL (0.0-1.1); Ca. Corrected For Albumin 8.9 mg/dL (8.4-10.2); Calcium * 8.3 mg/dL (7.9-10.9); Carbon Dioxide 31.7 mmol/L (24-32.6); Potassium 3.6 mmol/L (3.4-4.6); Total Protein 6.6 gm/dL (6.2-8.2)
[2018-08-14] MEDS ORDERED: POTASSIUM CHLORIDE 20 MEQ PO SCH (09:00)
[2018-08-14] MEDS ORDERED: FUROSEMIDE 40 MG TABLET PO SCH (09:00)
[2018-08-14] MEDS ORDERED: POTASSIUM CHLORIDE 20 MEQ TABLET.SA PO SCH (09:00)
[2018-08-14] MEDS ORDERED: ASPIRIN 325 MG PO SCH (09:00)
[2018-08-14] MEDS ORDERED: ROSUVASTATIN CALCIUM 10 MG TABLET PO SCH (09:00)
[2018-08-14] MEDS ORDERED: ATORVASTATIN CALCIUM 20 MG PO SCH (09:00)
[2018-08-14] MEDS: ASPIRIN 325 MG TABLET.DR PO SCH (09:59)
[2018-08-14] MEDS: METOPROLOL TARTRATE 25 MG TABLET PO SCH ×2 (10:00→22:05)
[2018-08-14] MEDS: ENOXAPARIN SODIUM 40 MG/0.4 ML SYRG SC SCH (11:28)
[2018-08-14] MEDS: POTASSIUM BICARBONATE/CIT AC 25 MEQ TABLET.EFF PO SCH (11:28)
--- NOTE | 2018-08-14 11:31 | PN ---
Subjective - Date and Time Seen Date: 08/14/18 Time: 09:15 Objective - Review of Systems Generalized/Overall Review: Reports: Fever Respiratory: Denies: Shortness of Breath Cardiac: Denies: Chest Pain Abdominal: Denies: Abdominal Pain Musculoskeletal Complaints: Reports: Other - Denies pain in both legs Misc: All systems neg except as marked - Vitals Vitals: Last Vital Signs Temp 38.6 C H 08/14/18 07:05 Pulse 118 H 08/14/18 10:00 Resp 18 08/14/18 07:05 BP 107/56 08/14/18 10:00 Pulse Ox 95 08/14/18 07:05 - Abnormal Lab Findings Abnormal Lab Findings: Abnormal Lab Results 08/13/18 08/13/18 08/13/18 Range/Units 16:48 17:00 17:00 WBC 16.3 H (4.0-10.5) K/mm3 RBC (4.2-5.4) M/mm3 Hgb (12.5-16.0) gm/dL MCHC 30.7 L (32-36) g/dl RDW 14.4 H (11.5-14.0) % Immature Gran % (Auto) 0.60 H (0.001-0.429) % Immature Gran # (Auto) 0.10 H (0.000-0.0310) K/mm3 Neutrophils % 87.3 H (42-75.0) % Lymphocytes % 6.1 L (20-51) % Neutrophils # 14.2 H (1.3-6.0) K/mm3 Lymphocytes # 0.99 L (1.5-3.5) k/mm3 pO2 (83.0-108.0) mmHg Total CO2 (19.0-24.0) mmol/L ABG O2 Sat (Measured) (94.0-98.0) % Sodium 144 H (132-142) mmol/L Plasma Sodium 145 H (130-142) mmol/L Carbon Dioxide 34.5 H (24-32.6) mmol/L Random Glucose 132 H (70-110) mg/dL Lactic Acid, Venous (0.4-2.0) mmol/L ALT 17 L (19-67) U/L Albumin (3.4-5.0) gm/dl Urine Bacteria 1+ H (NONE) 08/13/18 08/13/18 08/14/18 Range/Units 17:00 17:13 05:37 WBC 16.3 H (4.0-10.5) K/mm3 RBC 3.98 L (4.2-5.4) M/mm3 Hgb 11.7 L (12.5-16.0) gm/dL MCHC 31.3 L (32-36) g/dl RDW 14.5 H (11.5-14.0) % Immature Gran % (Auto) 0.70 H (0.001-0.429) % Immature Gran # (Auto) 0.11 H (0.000-0.0310) K/mm3 Neutrophils % 92.8 H (42-75.0) % Lymphocytes % 3.5 L (20-51) % Neutrophils # 15.1 H (1.3-6.0) K/mm3 Lymphocytes # 0.57 L (1.5-3.5) k/mm3 pO2 65.2 L (83.0-108.0) mmHg Total CO2 26.5 H (19.0-24.0) mmol/L ABG O2 Sat (Measured) 93.7 L (94.0-98.0) % Sodium (132-142) mmol/L Plasma Sodium (130-142) mmol/L Carbon Dioxide (24-32.6) mmol/L Random Glucose (70-110) mg/dL Lactic Acid, Venous 2.2 H* (0.4-2.0) mmol/L ALT (19-67) U/L Albumin (3.4-5.0) gm/dl Urine Bacteria (NONE) 08/14/18 Range/Units 05:37 WBC (4.0-10.5) K/mm3 RBC (4.2-5.4) M/mm3 Hgb (12.5-16.0) gm/dL MCHC (32-36) g/dl RDW (11.5-14.0) % Immature Gran % (Auto) (0.001-0.429) % Immature Gran # (Auto) (0.000-0.0310) K/mm3 Neutrophils % (42-75.0) % Lymphocytes % (20-51) % Neutrophils # (1.3-6.0) K/mm3 Lymphocytes # (1.5-3.5) k/mm3 pO2 (83.0-108.0) mmHg Total CO2 (19.0-24.0) mmol/L ABG O2 Sat (Measured) (94.0-98.0) % Sodium (132-142) mmol/L Plasma Sodium (130-142) mmol/L Carbon Dioxide (24-32.6) mmol/L Random Glucose 130 H (70-110) mg/dL Lactic Acid, Venous (0.4-2.0) mmol/L ALT 17 L (19-67) U/L Albumin 2.8 L (3.4-5.0) gm/dl Urine Bacteria (NONE) - Exam Constitutional: Present: Cooperative, Lethargic, Elderly ENT Exam: Present: hard of hearing Neck: Present: supple, trachea midline. Absent: lymphadenopathy (R), lymphadenopathy (L) Respiratory: Present: decreased breath sounds - Poor inspiratory effort, crackles - Mild bilateral bases Cardiovascular/Chest: Present: normal peripheral pulses, regular rate, rhythm, no murmur, edema Abdomen: Present: Normal bowel sounds, soft, nontender Extremity: Present: non-tender, pedal edema - 1+ pitting bilateral legs Skin Exam: Present: warm/dry, other - Erythema of the right lower extremity, not progressing Appearance: Present: appropriate appearance, impaired insight Eye contact: Present: cooperative Thoughts: Absent: normal thought pattern Assessment/Plan Plan Narrative: 83-year-old female with a past medical history of dementia, cellulitis, hyperlipidemia, myocardial infarct, peripheral edema, stasis dermatitis presents from home with complaints of worsening confusion x1 day. In the ER she was found to have a fever, leukocytosis, hypotension, tachycardia and hypoxia. Chest x-ray positive for bibasilar opacities. She is admitted for further management of pneumonia. Continue with ceftriaxone and azithromycin day 2. - Problems/Diagnosis (1) Pneumonia Problem: Acute Qualifiers: Pneumonia type: due to unspecified organism Laterality: bilateral Lung location: lower lobe of lung Qualified Code(s): J18.1 - Lobar pneumonia, unspecified organism Narrative: Continue with azithromycin and ceftriaxone day 2. (2) Altered mental status Problem: Acute Narrative: Improved. (3) Dementia Problem: Chronic Narrative: Stable. (4) Hypoxia Problem: Acute Narrative: Continue with oxygen as needed and attempt to taper off. (5) Hypercholesteremia Problem: Chronic Narrative: Continue home medications. (6) Hypotension Problem: Acute Narrative: Her systolic BP runs in the 90's to low 100's. However her SBP dropped to the 7 0's this afternoon. She received two, 250 fluid boluses with improvement of SBP to 80's. She is asymptomatic. Con't to monitor and hold further lasix for now.
[2018-08-14] MEDS ORDERED: NORMAL SALINE 250 ML IV ONE ×2 (12:38→14:30)
[2018-08-14] MEDS: AZITHROMYCIN 500 MG in DEXTROSE 5 % IN WATER 250 ML IV SCH ×2 (19:46)
[2018-08-14] MEDS: ROSUVASTATIN CALCIUM 10 MG TABLET PO SCH (22:05)
[2018-08-15 05:32] LABS: Hematocrit 38.6 % (37.0-47.0); Hemoglobin 11.7 gm/dL (12.5-16.0); Mean Cell Volume 95.8 fl (78-100); Mean Corpuscular Hgb Conc 30.3 g/dl (32-36); Mean Platelet Volume 9.8 fl (8-12.5); Neutrophil # 8.5 K/mm3 (1.3-6.0); Neutrophil % 83.9 % (42-75.0); Platelet Count 322 K/mm3 (150-450); Red Blood Count 4.03 M/mm3 (4.2-5.4); Red Cell Distribution Width 14.7 % (11.5-14.0); White Blood Count 10.1 K/mm3 (4.0-10.5)
[2018-08-15 05:51] LABS: Albumin * 2.7 gm/dl (3.4-5.0); Anion Gap 7.8 mmol/L (6.8-13.8); BUN/Creatinine Ratio 19.8 (9.0-21.6); Bilirubin, Total 0.5 mg/dL (0.0-1.1); Ca. Corrected For Albumin 9.3 mg/dL (8.4-10.2); Calcium * 8.6 mg/dL (7.9-10.9); Carbon Dioxide 34.8 mmol/L (24-32.6); Potassium 3.6 mmol/L (3.4-4.6); Total Protein 6.8 gm/dL (6.2-8.2)
[2018-08-15] MEDS ORDERED: NORMAL SALINE 250 ML IV ONE ×2 (07:33→09:16)
[2018-08-15] MEDS: ASPIRIN 325 MG TABLET.DR PO SCH (09:01)
[2018-08-15] MEDS: POTASSIUM BICARBONATE/CIT AC 25 MEQ TABLET.EFF PO SCH (09:01)
[2018-08-15] MEDS: ACETAMINOPHEN 500 MG TABLET PO PRN ×2 (09:10→18:43)
[2018-08-15] MEDS: METOPROLOL TARTRATE 25 MG TABLET PO SCH (09:17)
--- NOTE | 2018-08-15 11:05 | PN ---
Subjective - Date and Time Seen Date: 08/15/18 Time: 09:45 Subjective Narrative: She states she feels tired but denies chest pain shortness of breath or abdominal pain. Objective - Review of Systems Generalized/Overall Review: Reports: Fatigue. Denies: Chills, Fever Respiratory: Denies: Shortness of Breath Cardiac: Denies: Chest Pain Abdominal: Denies: Abdominal Pain Misc: All systems neg except as marked - Vitals Vitals: Last Vital Signs Temp 37.0 C 08/15/18 10:28 Pulse 94 08/15/18 10:28 Resp 20 08/15/18 10:28 BP 95/40 08/15/18 10:28 Pulse Ox 93 08/15/18 10:28 - Abnormal Lab Findings Abnormal Lab Findings: Abnormal Lab Results 08/15/18 08/15/18 Range/Units 05:30 05:30 RBC 4.03 L (4.2-5.4) M/mm3 Hgb 11.7 L (12.5-16.0) gm/dL MCHC 30.3 L (32-36) g/dl RDW 14.7 H (11.5-14.0) % Immature Gran # (Auto) 0.04 H (0.000-0.0310) K/mm3 Neutrophils % 83.9 H (42-75.0) % Lymphocytes % 9.7 L (20-51) % Neutrophils # 8.5 H (1.3-6.0) K/mm3 Lymphocytes # 0.98 L (1.5-3.5) k/mm3 Carbon Dioxide 34.8 H (24-32.6) mmol/L ALT 16 L (19-67) U/L Albumin 2.7 L (3.4-5.0) gm/dl - Exam Constitutional: Present: Alert, Cooperative, No distress, Lethargic, Elderly ENT Exam: Present: hard of hearing Neck: Present: non-tender, trachea midline. Absent: lymphadenopathy (R), lymphadenopathy (L) Respiratory: Present: lungs clear, no respiratory distress, no accessory muscle use, No wheezing. Absent: crackles, rhonchi Cardiovascular/Chest: Present: normal peripheral pulses, regular rate, rhythm, no murmur, edema Abdomen: Present: Normal bowel sounds, soft, nontender Extremity: Present: pedal edema - 1+ bilateral pitting. Skin Exam: Present: warm/dry, other - Left leg erythema, nontender Neurologic: Present: normal mood/affect Appearance: Present: appropriate appearance, impaired insight Eye contact: Present: cooperative, good eye contact Thoughts: Present: normal mood /affect Assessment/Plan Plan Narrative: 83-year-old female with a past medical history of dementia, cellulitis, hyperlipidemia, myocardial infarct, peripheral edema, stasis dermatitis presents from home with complaints of worsening confusion x1 day. In the ER she was found to have a fever, leukocytosis, hypotension, tachycardia and hypoxia. Chest x-ray positive for bibasilar opacities. She is admitted for further management of pneumonia. Continue with ceftriaxone and azithromycin day 3. She developed asymptomatic episodes of hypotension yesterday and today. She is responsive to IV fluid boluses of 250 cc. Her blood pressure does run systolically in the 90s to low 100s. She continues to be afebrile. She has been titrated off oxygen this morning and ambulated without desaturating. She will likely need to be monitored for another 1 or 2 days. She will be stable to discharge home with oral antibiotics once her blood pressure is stable. - Problems/Diagnosis (1) Pneumonia Problem: Acute Qualifiers: Pneumonia type: due to unspecified organism Laterality: bilateral Lung location: lower lobe of lung Qualified Code(s): J18.1 - Lobar pneumonia, unspecified organism (2) Altered mental status Problem: Resolved (3) Dementia Problem: Chronic (4) Hypoxia Problem: Resolved (5) Hypercholesteremia Problem: Chronic (6) Hypotension Problem: Acute
[2018-08-15] MEDS: ENOXAPARIN SODIUM 40 MG/0.4 ML SYRG SC SCH (11:54)
[2018-08-15] MEDS ORDERED: NORMAL SALINE 1,000 ML IV PRN (12:03)
[2018-08-15] MEDS: AZITHROMYCIN 500 MG in DEXTROSE 5 % IN WATER 250 ML IV SCH ×2 (18:39)
[2018-08-15] MEDS: ROSUVASTATIN CALCIUM 10 MG TABLET PO SCH (20:58)
[2018-08-16 07:47] LABS: Hemoglobin 11.1 gm/dL (12.5-16.0); Mean Cell Volume 95.2 fl (78-100); Mean Corpuscular Hemoglobin 29.4 pg (27-31); Mean Corpuscular Hgb Conc 30.8 g/dl (32-36); Mean Platelet Volume 10.1 fl (8-12.5); Neutrophil # 6.4 K/mm3 (1.3-6.0); Platelet Count 325 K/mm3 (150-450); Red Blood Count 3.78 M/mm3 (4.2-5.4); Red Cell Distribution Width 14.6 % (11.5-14.0); White Blood Count 8.8 K/mm3 (4.0-10.5)
[2018-08-16 08:00] LABS: Albumin * 2.6 gm/dl (3.4-5.0); Anion Gap 7.4 mmol/L (6.8-13.8); Bilirubin, Total 0.4 mg/dL (0.0-1.1); Ca. Corrected For Albumin 9.4 mg/dL (8.4-10.2); Calcium * 8.6 mg/dL (7.9-10.9); Carbon Dioxide 33.3 mmol/L (24-32.6); Potassium 3.7 mmol/L (3.4-4.6); Total Protein 6.7 gm/dL (6.2-8.2)
[2018-08-16 08:08] LABS: BUN/Creatinine Ratio 19.5 (9.0-21.6)
[2018-08-16] MEDS: METOPROLOL TARTRATE 25 MG TABLET PO SCH (08:42)
[2018-08-16] MEDS: POTASSIUM BICARBONATE/CIT AC 25 MEQ TABLET.EFF PO SCH (08:43)
[2018-08-16] MEDS: ASPIRIN 325 MG TABLET.DR PO SCH (08:43)
--- NOTE | 2018-08-16 10:01 | DS ---
Description of Stay: 83-year-old female admitted for pneumonia, hypoxi, and hypotension was evaluated at bedside and was found to be afebrile and in no acute distress. After being treated with IV hydration patient's blood pressure has improved but remains on the lower side which is around her baseline. There has been no recurrence of fever or chills, blood cultures are negative, and there is complete resolution of leukocytosis. Patient is saturating adequately on room air and tolerated weaning of oxygen without any issues. Therefore decision to discharge patient home with additional days of p.o. antibiotics was taken. Patient's grandson was explained that once she returned home her blood pressure should be monitored with a blood pressure kit. If blood pressure remains low or worsens she should not be given her antihypertensives. He was also instructed to follow-up with the patient's PCP for evaluation and a week. He expressed th at he understood. Patient patient will be discharged with home health services due to her needs for half-way care for medication education and management due to medication changes, vital signs, heart and lungs sound monitoring, monitoring of lower extremity edema. Patient was taken off of Lasix due to low blood pressures. She has a history of lower extremity edema but needs to remain on a beta-radha for optimal heart rate control and a history of [place] that occurred last year. She will also be receiving at home physical therapy for strengthening, endurance due to deconditioning from pneumonia. Procedures Performed: none Results and Findings: Pending Mircobiology Results 08/13/18 17:20 Blood Blood Culture - Preliminary NO GROWTH AFTER 48 HOURS 08/13/18 17:00 Blood Blood Culture - Preliminary NO GROWTH AFTER 48 HOURS Lab Pending Results 08/13/18 16:48: Urine Color Yellow, Urine Appearance Clear, Urine pH 7.5, Ur Specific Bowlus 1.015, Urine Protein Negative, Urine Glucose (UA) Negative, Urine Ketones Negative, Urine Blood Negative, Urine Nitrate Negative, Urine Bilirubin Negative, Urine Urobilinogen Normal, Ur Leukocyte Esterase Negative, Urine RBC 0-5, Urine WBC 0-5, Ur Epithelial Cells 0-5, Urine Bacteria 1+ H, Urine Culture Comments Culture to follow 08/13/18 17:00: WBC 16.3 H, RBC 4.53, Hgb 13.2, Hct 43.0, MCV 94.9, MCH 29.1, MCHC 30.7 L, RDW 14.4 H, Plt Count 415, MPV 9.6, Immature Gran % (Auto) 0.60 H, Immature Gran # (Auto) 0.10 H, Neutrophils % 87.3 H, Lymphocytes % 6.1 L, Monocytes % 4.2, Eosinophils % 1.5, Basophils % 0.3, Nucleated RBC % 0.0, Neutrophils # 14.2 H, Lymphocytes # 0.99 L, Monocytes # 0.7, Eosinophils # 0.3, Absolute Basophils 0.1 08/13/18 17:00: Sodium 144 H, Plasma Sodium 145 H, Potassium 3.7, Chloride 101, Carbon Dioxide 34.5 H, Anion Gap 12.2, BUN 13, Creatinine 0.86, Est GFR (Non-Af Amer) 67, BUN/Creatinine Ratio 15.1, Random Glucose 132 H, Calcium 9.0, Calcium Adj for Albumin 9.0, Total Bilirubin 0.4, AST 23, ALT 17 L, Alkaline Phosphatase 97, Troponin I Less than 0.017, B-Natriuretic Peptide 393, Total Protein 7.9, Albumin 3.6 08/13/18 17:00: Lactic Acid, Venous 2.2 H* 08/13/18 17:13: pCO2 37.7, pO2 65.2 L, HCO3 25.4, Total CO2 26.5 H, Base Excess 1.5, ABG pH 7.45, ABG O2 Sat (Measured) 93.7 L 08/13/18 19:45: Lactic Acid, Venous 2.0 08/14/18 05:37: WBC 16.3 H, RBC 3.98 L, Hgb 11.7 L, Hct 37.4, MCV 94.0, MCH 29.4, MCHC 31.3 L, RDW 14.5 H, Plt Count 335, MPV 9.8, Immature Gran % (Auto) 0.70 H, Immature Gran # (Auto) 0.11 H, Neutrophils % 92.8 H, Lymphocytes % 3.5 L, Monocytes % 2.8, Eosinophils % 0.1, Basophils % 0.1, Nucleated RBC % 0.0, Neutrophils # 15.1 H, Lymphocytes # 0.57 L, Monocytes # 0.5, Eosinophils # 0.0, Absolute Basophils 0.0 08/14/18 05:37: Sodium 141, Plasma Sodium 141, Potassium 3.6, Chloride 103, Carbon Dioxide 31.7, Anion Gap 9.9, BUN 14, Creatinine 0.92, Est GFR (Non-Af Amer) 62, BUN/Creatinine Ratio 15.2, Random Glucose 130 H, Calcium 8.3, Calcium Adj for Albumin 8.9, Total Bilirubin 0.6, AST 24, ALT 17 L, Alkaline Phosphatase 71, Total Protein 6.6, Albumin 2.8 L 08/15/18 05:30: WBC 10.1 D, RBC 4.03 L, Hgb 11.7 L, Hct 38.6, MCV 95.8, MCH 29.0, MCHC 30.3 L, RDW 14.7 H, Plt Count 322, MPV 9.8, Immature Gran % (Auto) 0.40, Immature Gran # (Auto) 0.04 H, Neutrophils % 83.9 H, Lymphocytes % 9.7 L, Monocytes % 5.3, Eosinophils % 0.6, Basophils % 0.1, Nucleated RBC % 0.0, Neutrophils # 8.5 H, Lymphocytes # 0.98 L, Monocytes # 0.5, Eosinophils # 0.1, Absolute Basophils 0.0 08/15/18 05:30: Sodium 142, Plasma Sodium 142, Potassium 3.6, Chloride 103, Carbon Dioxide 34.8 H, Anion Gap 7.8, BUN 17, Creatinine 0.86, Est GFR (Non-Af Amer) 67, BUN/Creatinine Ratio 19.8, Random Glucose 105, Calcium 8.6, Calcium Adj for Albumin 9.3, Total Bilirubin 0.5, AST 33, ALT 16 L, Alkaline Phosphatase 70, Total Protein 6.8, Albumin 2.7 L 08/16/18 07:43: WBC 8.8, RBC 3.78 L, Hgb 11.1 L, Hct 36.0 L, MCV 95.2, MCH 29.4, MCHC 30.8 L, RDW 14.6 H, Plt Count 325, MPV 10.1, Immature Gran % (Auto) 0.20, Immature Gran # (Auto) 0.02, Neutrophils % 73.0, Lymphocytes % 17.1 L, Monocytes % 7.6, Eosinophils % 1.9, Basophils % 0.2, Nucleated RBC % 0.0, Neutrophils # 6.4 H, Lymphocytes # 1.50, Monocytes # 0.7, Eosinophils # 0.2, Absolute Basophils 0.0 08/16/18 07:43: Sodium 141, Plasma Sodium 141, Potassium 3.7, Chloride 104, Carbon Dioxide 33.3 H, Anion Gap 7.4, BUN 15, Creatinine 0.77, Est GFR (Non-Af Amer) 76, BUN/Creatinine Ratio 19.5, Random Glucose 104, Calcium 8.6, Calcium Adj for Albumin 9.4, Total Bilirubin 0.4, AST 27, ALT 16 L, Alkaline Phosphatase 69, Total Protein 6.7, Albumin 2.6 L Discharge Location: Home Disposition: [facility] Agency: [facility] Home Health Condition: Fair Face to Face Encounter completed per [facility] Guidelines: Yes Discharge Activity: Activity as tolerated Discharge Diet: General/regular food Referrals: Rosina Mesa FNP [Primary Care Provider] - Additional Patient Instructions (free text): [facility] new.Nursing, bath aide and PT. Please call report and fax orders upon discharge. -Please make TCM appointment unless senior living discharge, or if following up with outside provider. Thank you! Natalia @ [facility] [phone] or Rosina at [phone]. Biometric Screener is Dr Julio/Serenity Mckeon NP at [facility]. Prescriptions (Any new or edited meds): Azithromycin 250 mg PO DAILY 5 Days #5 tab Complete Home Medications List: Complete Home Medication List: Acetaminophen [Tylenol] 500 mg PO Q6H PRN 09/06/17 aspirin 325 mg tablet 325 mg PO DAILY 09/20/17 metoprolol tartrate 25 mg tablet 12.5 mg PO BID #60 tab 10/14/17 potassium chloride ER 10 mEq capsule,extended release See Rx Instructions .ROUTE .COMPLEX #120 unspecified 04/28/18 atorvastatin 20 mg tablet 20 mg PO DAILY #90 tab 07/07/18 Azithromycin 250 mg PO DAILY 5 Days #5 tab 08/16/18
[2018-08-16] MEDS: ENOXAPARIN SODIUM 40 MG/0.4 ML SYRG SC SCH (11:41)
[2018-08-16 20:23] VITALS: BP 125/53
== END 2018-08-16 20:00 | disposition home health service (06) | DRG 195 ==
LOC: MS 16:41 → ER 16:41 → MS 19:08
PROVIDERS: ADMIT Internal Medicine; ATTEND Internal Medicine
CPT/HCPCS: 36415; 36600; 71010; 71045; 80053; 81001; 82803; 83519; 83605; 83880; 84484; 85025; 87040; 87086; 93005; 94762; 96365; 99284; G0378

== ENCOUNTER 2020-05-27 15:06 | Inpatient (IN) ==
[2020-05-27] MEDS ORDERED: NORMAL SALINE 1,000 ML IV ONE (15:45)
[2020-05-27] MEDS ORDERED: PIPERACILLIN SODIUM/TAZOBACTAM 3.375 GM in DEXTROSE 5 % IN WATER 100 ML IV ONE ×2 (15:48)
[2020-05-27 16:18] LABS: Hematocrit 41.4 % (37.0-47.0); Hemoglobin 12.5 gm/dL (12.5-16.0); Mean Corpuscular Hemoglobin 27.8 pg (27-31); Mean Corpuscular Hgb Conc 30.2 g/dl (32-36); Mean Platelet Volume 10.4 fl (8-12.5); Neutrophil # 6.2 K/mm3 (1.3-6.0); Neutrophil % 75.2 % (42-75.0); Platelet Count 430 K/mm3 (150-450); Red Cell Distribution Width 15.9 % (11.5-14.0); White Blood Count 8.2 K/mm3 (4.0-10.5)
[2020-05-27 16:29] LABS: Albumin * 3.1 gm/dl (3.4-5.0); Anion Gap 10.5 mmol/L (6.8-13.8); Bilirubin, Total 0.3 mg/dL (0.0-1.1); Ca. Corrected For Albumin 9.5 mg/dL (8.4-10.2); Calcium * 9.1 mg/dL (7.9-10.9); Carbon Dioxide 32.2 mmol/L (24-32.6); Potassium 4.7 mmol/L (3.4-4.6); Total Protein 7.3 gm/dL (6.2-8.2)
--- NOTE | 2020-05-27 16:52 | ERNOTE ---
ER Female HPI Date of Service: 05/27/20 Stated Complaint: UTI Time Seen by Provider: 05/27/20 15:38 Source: patient Exam Limitations: clinical condition, hard of hearing Immunizations: IMMUNIZATION HX Immunizations Up to Date No History of Influenza Vaccine More Information Required Hx Pneumococcal Vaccination More Information Required Allergies/Adverse Reactions: Allergies aspirin Allergy (Mild, Verified 05/27/20 15:38) Itching Sulfa (Sulfonamide Antibiotics) Allergy (Unknown, Verified 05/27/20 15:38) Home Medications: HOME MEDICATIONS Acetaminophen [Tylenol] 500 mg PO Q6H PRN 09/06/17 [Last Taken Unknown] amiodarone 200 mg tablet 400 mg PO BID #1 tab 05/02/20 [Last Taken Unknown] aspirin 81 mg tablet,delayed release 81 mg PO DAILY #1 tab 05/02/20 [Last Taken Unknown] docusate sodium 100 mg capsule 100 mg PO DAILY #1 cap 05/02/20 [Last Taken Unknown] furosemide 20 mg tablet 20 mg PO DAILY #30 tab 05/10/20 [Last Taken Unknown] potassium chloride 20 mEq tablet,extended release 20 meq PO DAILY #30 tab 05/10/20 [Last Taken Unknown] cephalexin 500 mg capsule 500 mg PO BID 7 Days #14 cap 05/25/20 [Last Taken Unknown] - History of Present Illness Narrative: Patient is poor historian. Not much history is available from her. Home health stopped by and notified us that she was coming in. Has multidrug resistant UTI that oral ABx not appropriate given drug interactions. Needs IV ABx. She will not give me much history at all. Denies pain at this point. Timing: Present: constant Quality: Present: other - unknown Onset Location: Present: other - denies pain Radiation: Present: none Activities at Onset: Present: none Prior Abdominal Problems: Present: similar symptoms Modifying Factors - (Improves): Present: other - unsure Modifying Factors - (Worsens): Present: other - unsure Associated Symptoms: Absent: fever/chills Prior Treatment: Present: recently seen Review of Systems - Narrative Narrative: ROS unobtainable in entirety d/t patient condition, [place] - Review of Systems Constitutional: Absent: fever Medical History (Last Reviewed 05/27/20 @ 17:02 by Steven Foote MD) Peripheral edema (Chronic) Stasis dermatitis of both legs (Chronic) Myocardial infarction (Resolved) Cellulitis of lower extremity (Resolved) Onset Date: Unknown Hypercholesteremia (Chronic) Onset Date: Unknown Dementia Urinary tract infection Surgical History: Surgical History (Last Reviewed 05/27/20 @ 17:02 by Steven Foote MD) H/O heart surgery Onset Date: ~08/2017 Stent placement Family History: Family History (Last Reviewed 05/27/20 @ 17:02 by Steven Foote MD) Mother Diabetes Father Lung cancer Social History: (Last Reviewed 05/27/20 @ 17:02 by Steven Foote MD) Social History: adopted: No foster care: No fci: No Marital status: / lives independently: No household members: children caregiver/support person: No current occupational status: retired Highest level of school completed/degree received: high school graduate Service: No Tobacco: Smoking Status: Never smoker Alcohol: alcohol intake: never Substance Use: substance use type: does not use Dietary Habits: caffeine: Yes Physical Exam - Physical Exam General Appearance: Present: alert, other - chronically ill appearing Head Exam: Present: normal inspection, no evidence of injury Eye Exam: Normal inspection: bilateral Ears, Nose, Throat: Present: normal ENT inspection, dry mucous membranes Neck: Present: normal inspection Respiratory: Present: no respiratory distress, normal breath sounds Cardiovascular/Chest: Present: regular rate, rhythm Gastrointestinal/Abdominal: Present: normal bowel sounds, nontender, soft Back Exam: Absent: CVA tenderness (R), CVA tenderness (L) Extremity Exam: Present: other - no deformity Neurological Exam: Present: alert, other - generalized weakness noted, no acute unilateral focal motor or sensory deficits Skin Exam: Present: normal color, warm/dry Progress - Results and Orders Patient's Lab Results:: I have reviewed the patient's lab results. - Vital Signs Patient's Vital Signs:: I have reviewed the patient's vital signs. Vital Signs: Vital Signs 05/27/20 15:35 05/27/20 15:59 05/27/20 16:25 Temperature 36.9 C Pulse Rate 58 L 93 54 L Respiratory Rate 18 15 22 H Blood Pressure 94/44 83/51 L 102/50 O2 Sat by Pulse Oximetry 96 94 94 - Progress/Reassessment Chief Complaint: Genitourinary Problem Progress Note-Subjective: 05/27/20 17:03 Patient given IV ABx. Has MDRO. Hypotension treated with IV fluids and improved. Case d/w Dr Hicks who will admit. Patient understands this. 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
[2020-05-27 16:58] LABS: Urine Bilirubin Negative (NEGATIVE); Urine Blood 50 /ul (NEGATIVE); Urine Ketone Negative (NEGATIVE); Urine Nitrite Negative (NEGATIVE); Urine Protein 30 mg/dL (NEGATIVE); Urine Specific Gravity 1.015 SP.GR. (1.005-1.010); Urine Urobilinogen Normal (NORMAL); Urine pH 7.5 pH (5.0-7.0)
[2020-05-27 17:28] LABS: Urine Appearance Cloudy (CLEAR); Urine Color Yellow
[2020-05-27 17:29] LABS: Urine Bacteria 3+; Urine WBC >50 /hpf (0-5)
--- NOTE | 2020-05-27 18:56 | HP ---
Chief Complaint - Chief Complaint Date of Service: 05/27/20 Time of Service: 16:45 Chief Complaint: resistant UTI History of Present Illness: History obtained from ERP, patients grandson, and DC summary from [facility] last month. She was on cipro for a UTI, but culture showed it was resistant to the cipro. Home health asked for her to be admitted for IV antibiotics. She was admitted to [facility] last month for cellulitis causing severe sepsis requi ring pressors, NSTEMI started on amiodarone, dehydration, candidiasis of groin, and altered mental status. DC summary states she finished her antibiotic course, however, so I am not sure about the recent antibiotic indication. She is unable to contribute history to know if she is having urinary symptoms. Work up in the ED showed leukocyte esterase, 3+ bacteria, blood, but negative for nitrates. WBC normal at 8.2, neutrophils barely high at 75.2. Her BP has been low, as low as 83/51. Seems to be improving with fluids. Lactate not elevated at 1.3. Recent DC summary shows her BP was low there as well, with DC BP of 94/57. She was given a dose of zosyn in the ED. Her urine grew pseudomonas, sensitive to zosyn, merrem, tobramycin, amikacin, levaquin, cipro. She does not have a po option that is compatible with her amiodarone, so she is admitted for IV antibiotics. She expressed to the ERP that she would like to be DNR. She did not answer my questions. Medical History (Last Reviewed 05/27/20 @ 17:02 by Steven Foote MD) Peripheral edema (Chronic) Stasis dermatitis of both legs (Chronic) Myocardial infarction (Resolved) Cellulitis of lower extremity (Resolved) Onset Date: Unknown Hypercholesteremia (Chronic) Onset Date: Unknown Dementia Urinary tract infection Surgical History: Surgical History (Last Reviewed 05/27/20 @ 17:02 by Steven Foote MD) H/O heart surgery Onset Date: ~08/2017 Stent placement Family History: Family History (Last Reviewed 05/27/20 @ 17:02 by Steven Foote MD) Mother Diabetes Father Lung cancer Social History: (Last Reviewed 05/27/20 @ 17:02 by Steven Foote MD) Social History: adopted: No foster care: No correction: No Marital status: / lives independently: No household members: children caregiver/support person: No current occupational status: retired Highest level of school completed/degree received: high school graduate Service: No Tobacco: Smoking Status: Never smoker Alcohol: alcohol intake: never Substance Use: substance use type: does not use Dietary Habits: caffeine: Yes Review Of Systems (GEN) - Review of Systems Generalized/Overall Review: Present: No Symptoms Reported - unable to obtain Immunizations: IMMUNIZATION HX Immunizations Up to Date No History of Influenza Vaccine More Information Required Hx Pneumococcal Vaccination More Information Required Allergies/Adverse Reactions: Allergies Allergy/AdvReac Type Severity Reaction Status Date / Time aspirin Allergy Mild Itching Verified 05/27/20 15:38 Sulfa (Sulfonamide Allergy Unknown Verified 05/27/20 15:38 Antibiotics) Home Medications: HOME MEDICATIONS Acetaminophen [Tylenol] 500 mg PO Q6H PRN 09/06/17 [Last Taken Unknown] amiodarone 200 mg tablet 400 mg PO BID #1 tab 05/02/20 [Last Taken Unknown] aspirin 81 mg tablet,delayed release 81 mg PO DAILY #1 tab 05/02/20 [Last Taken Unknown] docusate sodium 100 mg capsule 100 mg PO DAILY #1 cap 05/02/20 [Last Taken Unknown] furosemide 20 mg tablet 20 mg PO DAILY #30 tab 05/10/20 [Last Taken Unknown] potassium chloride 20 mEq tablet,extended release 20 meq PO DAILY #30 tab 05/10/20 [Last Taken Unknown] cephalexin 500 mg capsule 500 mg PO BID 7 Days #14 cap 05/25/20 [Last Taken Unknown] Exam - Exam Vital Signs: Vital Signs - Last Taken Temp 36.9 C 05/27/20 15:35 Pulse 51 L 05/27/20 18:00 Resp 24 H 05/27/20 18:00 BP 91/43 05/27/20 18:00 Pulse Ox 99 05/27/20 18:00 Constitutional: Present: Elderly, Thin and frail Respiratory: Present: lungs clear, normal breath sounds Cardiovascular/Chest: Present: regular rate, rhythm Abdomen: Present: soft. Absent: no hepatospenomegaly Extremity: Present: lower extremity edema Skin Exam: Present: other - no erythema of bilateral anterior lower legs Eye contact: Present: other - makes eye contact, but does not interact Diagnostic Studies: Abnormal Lab Results 05/27/20 05/27/20 05/27/20 Range/Units 14:00 14:00 16:05 MCHC 30.2 L (32-36) g/dl RDW 15.9 H (11.5-14.0) % Immature Gran % (Auto) 0.60 H (0.001-0.429) % Immature Gran # (Auto) 0.05 H (0.000-0.0310) K/mm3 Neutrophils % 75.2 H (42-75.0) % Lymphocytes % 14.1 L (20-51) % Neutrophils # 6.2 H (1.3-6.0) K/mm3 Lymphocytes # 1.16 L (1.5-3.5) k/mm3 Potassium 4.7 H (3.4-4.6) mmol/L BUN 26 H D (3-23) mg/dL Est GFR (Non-Af Amer) 49 L (60-130) mL/min BUN/Creatinine Ratio 23.0 H (9.0-21.6) Albumin 3.1 L (3.4-5.0) gm/dl Urine Protein 30 H (NEGATIVE) mg/dL Urine Blood 50 H (NEGATIVE) /ul Ur Leukocyte Esterase 100 H (NEGATIVE) /ul Urine RBC 10-25 H (0-5) /hpf Urine WBC >50 H (0-5) /hpf Urine Bacteria 3+ H (NONE) Laboratory Results WBC 8.2 K/mm3 (4.0-10.5) 05/27/20 14:00 RBC 4.50 M/mm3 (4.2-5.4) 05/27/20 14:00 Hgb 12.5 gm/dL (12.5-16.0) 05/27/20 14:00 Hct 41.4 % (37.0-47.0) 05/27/20 14:00 MCV 92.0 fl (78-100) 05/27/20 14:00 MCH 27.8 pg (27-31) 05/27/20 14:00 MCHC 30.2 g/dl (32-36) L 05/27/20 14:00 RDW 15.9 % (11.5-14.0) H 05/27/20 14:00 Plt Count 430 K/mm3 (150-450) 05/27/20 14:00 MPV 10.4 fl (8-12.5) 05/27/20 14:00 Immature Gran % (Auto) 0.60 % (0.001-0.429) H 05/27/20 14:00 Immature Gran # (Auto) 0.05 K/mm3 (0.000-0.0310) H 05/27/20 14:00 Neutrophils % 75.2 % (42-75.0) H 05/27/20 14:00 Lymphocytes % 14.1 % (20-51) L 05/27/20 14:00 Monocytes % 8.0 % (0.0-9) 05/27/20 14:00 Eosinophils % 1.5 % (0.0-3.0) 05/27/20 14:00 Basophils % 0.6 % (0.0-1.0) 05/27/20 14:00 Nucleated RBC % 0.0 k/mm3 (0-1) 05/27/20 14:00 Neutrophils # 6.2 K/mm3 (1.3-6.0) H 05/27/20 14:00 Lymphocytes # 1.16 k/mm3 (1.5-3.5) L 05/27/20 14:00 Monocytes # 0.7 k/mm3 (0.0-1.0) 05/27/20 14:00 Eosinophils # 0.1 k/mm3 (0.0-0.7) 05/27/20 14:00 Absolute Basophils 0.1 k/mm3 (0.0-0.1) 05/27/20 14:00 Sodium 138 mmol/L (132-142) 05/27/20 14:00 Plasma Sodium 138 mmol/L (130-142) 05/27/20 14:00 Potassium 4.7 mmol/L (3.4-4.6) H 05/27/20 14:00 Chloride 100 mmol/L (97-106) 05/27/20 14:00 Carbon Dioxide 32.2 mmol/L (24-32.6) 05/27/20 14:00 Anion Gap 10.5 mmol/L (6.8-13.8) 05/27/20 14:00 BUN 26 mg/dL (3-23) H D 05/27/20 14:00 Creatinine 1.13 mg/dL (0.4-1.4) 05/27/20 14:00 Est GFR (Non-Af Amer) 49 mL/min (60-130) L 05/27/20 14:00 BUN/Creatinine Ratio 23.0 (9.0-21.6) H 05/27/20 14:00 Random Glucose 98 mg/dL (70-110) 05/27/20 14:00 Lactic Acid, Venous 1.3 mmol/L (0.4-2.0) 05/27/20 14:00 Calcium 9.1 mg/dL (7.9-10.9) 05/27/20 14:00 Calcium Adj for Albumin 9.5 mg/dL (8.4-10.2) 05/27/20 14:00 Total Bilirubin 0.3 mg/dL (0.0-1.1) 05/27/20 14:00 AST 48 U/L (0-48) 05/27/20 14:00 ALT 38 U/L (19-67) 05/27/20 14:00 Alkaline Phosphatase 77 U/L (50-170) 05/27/20 14:00 Total Protein 7.3 gm/dL (6.2-8.2) 05/27/20 14:00 Albumin 3.1 gm/dl (3.4-5.0) L 05/27/20 14:00 Urine Color Yellow 05/27/20 16:05 Urine Appearance Cloudy (CLEAR) 05/27/20 16:05 Urine pH 7.5 pH (5.0-7.0) 05/27/20 16:05 Ur Specific [place] 1.015 SP.GR. (1.005-1.010) 05/27/20 16:05 Urine Protein 30 mg/dL (NEGATIVE) H 05/27/20 16:05 Urine Glucose (UA) Negative mg/dL (NEGATIVE) 05/27/20 16:05 Urine Ketones Negative mg/dL (NEGATIVE) 05/27/20 16:05 Urine Blood 50 /ul (NEGATIVE) H 05/27/20 16:05 Urine Nitrate Negative (NEGATIVE) 05/27/20 16:05 Urine Bilirubin Negative mg/dl (NEGATIVE) 05/27/20 16:05 Urine Urobilinogen Normal EU/dl (NORMAL) 05/27/20 16:05 Ur Leukocyte Esterase 100 /ul (NEGATIVE) H 05/27/20 16:05 Urine RBC 10-25 /hpf (0-5) H 05/27/20 16:05 Urine WBC >50 /hpf (0-5) H 05/27/20 16:05 Ur Epithelial Cells None seen /hpf (0-5) 05/27/20 16:05 Urine Bacteria 3+ (NONE) H 05/27/20 16:05 Urine Culture Comments Culture to follow 05/27/20 16:05 SARS-CoV-2 (PCR) Not detected (NotDetected) 05/27/20 16:49 Assessment/Plan - Narrative Narrative: UA today suggests UTI, but without being able to address symptoms, it is difficult to definitively diagnose. Urine culture pending. She had a urine culture done on 05/25, but I am unclear why. She may be colonized, and may not actually have an active infection. She had a 2 week hospitalization from 04/13- 04/25, and had a UTI at that time. She lives at home with family, and was receiving home health, who felt like she needed to be admitted for IV antibiotics. I believe her low blood pressure is her baseline, but will see how she responds to fluids. Will need to assess her needs after DC. Her grandson stated she's been weaker since coming home from the hospital, and with an additional hospitalization, she may require more assistance than family can provide. Anticipate DC in greater than 48 hours. 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 Heart rate seemed regular on exam, so will recheck EKG. This is interfering with treatment options, so if she is in sinus rhythm, may DC. Would like to get cardiology opinion if possible. Problem: Acute (6) History of non-ST elevation myocardial infarction (NSTEMI) Problem: Chronic (7) Hypercholesteremia Problem: Chronic
[2020-05-27] MEDS ORDERED: NORMAL SALINE 250 ML IV ONE (19:02)
[2020-05-28] MEDS: ACETAMINOPHEN 500 MG TABLET PO PRN (00:14)
[2020-05-28] MEDS ORDERED: hydrOXYzine HCL 25 MG TABLET PO ONE (02:45)
[2020-05-28] MEDS ORDERED: hydrOXYzine HCL 25 MG TABLET ONE (02:49)
[2020-05-28 07:38] LABS: Hematocrit 35.9 % (37.0-47.0); Mean Cell Volume 92.1 fl (78-100); Mean Corpuscular Hemoglobin 28.2 pg (27-31); Mean Corpuscular Hgb Conc 30.6 g/dl (32-36); Neutrophil # 3.6 K/mm3 (1.3-6.0); Neutrophil % 64.9 % (42-75.0); Platelet Count 371 K/mm3 (150-450); Red Cell Distribution Width 15.8 % (11.5-14.0); White Blood Count 5.6 K/mm3 (4.0-10.5)
[2020-05-28 07:58] LABS: Albumin * 2.5 gm/dl (3.4-5.0); BUN/Creatinine Ratio 19.4 (9.0-21.6); Bilirubin, Total 0.3 mg/dL (0.0-1.1); Ca. Corrected For Albumin 9.4 mg/dL (8.4-10.2); Calcium * 8.5 mg/dL (7.9-10.9); Carbon Dioxide 30.3 mmol/L (24-32.6); Potassium 4.3 mmol/L (3.4-4.6); Total Protein 5.4 gm/dL (6.2-8.2)
[2020-05-28] MEDS: PIPERACILLIN SODIUM/TAZOBACTAM 3.375 GM in DEXTROSE 5 % IN WATER 100 ML IV SCH ×4 (09:38→16:05)
--- NOTE | 2020-05-28 11:28 | PN ---
Subjective - Date and Time Seen Date: 05/28/20 Time: 09:30 Subjective Narrative: She was awake until about 4 am. Received a call overnight that she was picking at her legs. She is eating this morning, and seems less confused. She seems more alert today, but does not answer my questions. she will answer those questions when her grandson asks. She will take meds from her grandson, but is reluctant to take them from staff. Spoke with her daughter, Ann. She reports Alva has her days and nights mixed up, and is often up overnight. She does not feel like they can afford a fci. Objective - Review of Systems Generalized/Overall Review: Reports: Weakness Respiratory: Denies: Shortness of Breath Abdominal: Denies: Vomiting, Abdominal Pain Genitourinary Symptoms: Reports: No Symptoms Reported Skin: Reports: Other - dry skin of lower legs - Vitals Vitals: Last Vital Signs Temp 36.4 C 05/28/20 02:00 Pulse 51 L 05/28/20 10:22 Resp 12 05/28/20 07:20 BP 95/44 05/28/20 07:20 Pulse Ox 93 05/28/20 07:20 - Abnormal Lab Findings Abnormal Lab Findings: Abnormal Lab Results 05/27/20 05/27/20 05/27/20 Range/Units 14:00 14:00 14:00 RBC (4.2-5.4) M/mm3 Hgb (12.5-16.0) gm/dL Hct (37.0-47.0) % MCHC 30.2 L (32-36) g/dl RDW 15.9 H (11.5-14.0) % Immature Gran % (Auto) 0.60 H (0.001-0.429) % Immature Gran # (Auto) 0.05 H (0.000-0.0310) K/mm3 Neutrophils % 75.2 H (42-75.0) % Lymphocytes % 14.1 L (20-51) % Monocytes % (0.0-9) % Neutrophils # 6.2 H (1.3-6.0) K/mm3 Lymphocytes # 1.16 L (1.5-3.5) k/mm3 Potassium 4.7 H (3.4-4.6) mmol/L Chloride (97-106) mmol/L BUN 26 H D (3-23) mg/dL Est GFR (Non-Af Amer) 49 L (60-130) mL/min BUN/Creatinine Ratio 23.0 H (9.0-21.6) Total Protein (6.2-8.2) gm/dL Albumin 3.1 L (3.4-5.0) gm/dl Procalcitonin Less than 0.05 L (0.05-0.50) ng/mL Urine Protein (NEGATIVE) mg/dL Urine Blood (NEGATIVE) /ul Ur Leukocyte Esterase (NEGATIVE) /ul Urine RBC (0-5) /hpf Urine WBC (0-5) /hpf Urine Bacteria (NONE) 05/27/20 05/28/20 05/28/20 Range/Units 16:05 07:19 07:19 RBC 3.90 L (4.2-5.4) M/mm3 Hgb 11.0 L (12.5-16.0) gm/dL Hct 35.9 L (37.0-47.0) % MCHC 30.6 L (32-36) g/dl RDW 15.8 H (11.5-14.0) % Immature Gran % (Auto) 0.50 H (0.001-0.429) % Immature Gran # (Auto) (0.000-0.0310) K/mm3 Neutrophils % (42-75.0) % Lymphocytes % (20-51) % Monocytes % 10.0 H (0.0-9) % Neutrophils # (1.3-6.0) K/mm3 Lymphocytes # 1.18 L (1.5-3.5) k/mm3 Potassium (3.4-4.6) mmol/L Chloride 107 H (97-106) mmol/L BUN (3-23) mg/dL Est GFR (Non-Af Amer) 51 L (60-130) mL/min BUN/Creatinine Ratio (9.0-21.6) Total Protein 5.4 L (6.2-8.2) gm/dL Albumin 2.5 L (3.4-5.0) gm/dl Procalcitonin (0.05-0.50) ng/mL Urine Protein 30 H (NEGATIVE) mg/dL Urine Blood 50 H (NEGATIVE) /ul Ur Leukocyte Esterase 100 H (NEGATIVE) /ul Urine RBC 10-25 H (0-5) /hpf Urine WBC >50 H (0-5) /hpf Urine Bacteria 3+ H (NONE) - Exam Constitutional: Present: Alert, Other - sitting on edge of bed, eating breakfast, Elderly, Thin and frail Respiratory: Present: normal breath sounds, no respiratory distress Cardiovascular/Chest: Present: bradycardia Abdomen: Present: soft, nontender Extremity: Present: other - dependent lower legs are violaceous, which was not seen on admission exam when she was supine Skin Exam: Present: other - flaky, dry skin of lower legs Eye contact: Present: avoids eye contact Assessment/Plan Plan Narrative: She is admitted for IV antibiotics. She had been on amiodarone, and the urine culture from 05/25 showed pseudomonas sensitive to cipro and levaquin, but these are not to be given with amiodarone. She was given zosyn, and seems more alert today, so will continue. Will adjust based on final urine culture from yesterday. She was started on amiodarone a couple months ago for afib with RVR. She is in sinus bradycardia currently, with HT in the 50's. Amiodarone has not been restarted, and will DC. This will free up more antibiotic options in the future, if needed. Her grandson reports she has not been eating much at home. She has complained of painful urination. Her daughter states that her UTIs can present themselves with altered mentation and increased somnolence. Hydroxyzine started to try to help her sleep. She has not regained her strength after a 2 week hospitalization 2 months ago. Discussed DC plans with her daughter, Ann, today. They can not afford fci placement after DC. PT carlosal pending. Her BP is a bit low, but that is her baseline. Most recent BP of 95/44, similar to her BP on the day of DC from [facility]. Anticipate DC in greater than 24 hours, after the urine culture results. 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 (4) Frailty syndrome in geriatric patient Problem: Chronic (5) Dementia Problem: Chronic Qualifiers: Dementia type: unspecified type Dementia behavioral disturbance: without behavioral disturbance Qualified Code(s): F03.90 - Unspecified dementia without behavioral disturbance (6) Atrial fibrillation Problem: Resolved (7) History of non-ST elevation myocardial infarction (NSTEMI) Problem: Chronic (8) Hypercholesteremia Problem: Chronic (9) Insomnia Problem: Acute
[2020-05-29] MEDS: PIPERACILLIN SODIUM/TAZOBACTAM 3.375 GM in DEXTROSE 5 % IN WATER 100 ML IV SCH ×6 (00:25→16:08)
[2020-05-29] MEDS: ACETAMINOPHEN 500 MG TABLET PO PRN (02:13)
--- NOTE | 2020-05-29 09:12 | PN ---
Subjective - Date and Time Seen Date: 05/29/20 Time: 09:45 Subjective Narrative: She was pulling at her telemetry overnight, and grandson states it's difficult to get her to leave her IV alone. She did not sleep well last night either, and is sleeping currently. No new concerns otherwise. Objective - Review of Systems Generalized/Overall Review: Reports: No Symptoms Reported - unable to obtain - Vitals Vitals: Last Vital Signs Temp 36.8 C 05/29/20 06:34 Pulse 53 L 05/29/20 06:34 Resp 20 05/29/20 06:34 BP 94/56 05/29/20 06:34 Pulse Ox 94 05/29/20 06:34 - Exam Constitutional: Present: No distress, Elderly Respiratory: Present: lungs clear, normal breath sounds Cardiovascular/Chest: Present: regular rate, rhythm - HR 60 Abdomen: Present: soft Extremity: Absent: lower extremity edema Skin Exam: Present: other - dry, flaky skin of bilat lower extremities. violaceous coloration of bilat ankles Assessment/Plan Plan Narrative: She is admitted for IV antibiotics for UTI. She'd been complaining of painful urination and urine culture obtained 05/25 was multi drug resistant pseudomonas. She had been on amiodarone, and the urine culture from 05/25 showed pseudomonas sensitive to cipro and levaquin, but these are not to be given with amiodarone. She was given zosyn, and seemed more alert yesterday so will continue until culture results. Urine culture growing gram negative bacilli thus far, likely also pseudomonas, and should have final result tomorrow. She was started on amiodarone a couple months ago for afib with RVR. She is in sinus bradycardia with HR in the 50's. Amiodarone has not been restarted, and will DC. This will free up more antibiotic options in the future, if needed. Her grandson reports she's been more tired since DC from the hospital in April, and amiodarone could cause this. Her grandson reports she has not been eating much at home. She has complained of painful urination. Her daughter states that her UTIs can present themselves with altered mentation and increased somnolence. Hydroxyzine started to try to help her sleep. Her daughter reports her days and nights are mixed up. She has not regained her strength after a 2 week hospitalization 2 months ago. Discussed DC plans with her daughter, Ann. They can not afford senior living placement after DC. PT parish pending. Her BP is a bit low, but that is her baseline. Most recent BP of 95/44, similar to her BP on the day of DC from [facility]. Possible DC home tomorrow. 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
[2020-05-30] MEDS: PIPERACILLIN SODIUM/TAZOBACTAM 3.375 GM in DEXTROSE 5 % IN WATER 100 ML IV SCH ×2 (01:09)
[2020-05-30] MEDS ORDERED: FOSFOMYCIN TROMETHAMINE 3 GM PACKET PO ONE (06:51)
--- NOTE | 2020-05-30 09:30 | DS ---
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, newly diagnosed Problem: Resolved (2) Bradycardia Problem: Acute (3) Hyperkalemia Problem: Resolved (4) Frailty syndrome in geriatric patient Problem: Chronic (5) Dementia Problem: Chronic Qualifiers: Dementia type: unspecified type Dementia behavioral disturbance: without behavioral disturbance Qualified Code(s): F03.90 - Unspecified dementia without behavioral disturbance (6) Atrial fibrillation Problem: Resolved (7) History of non-ST elevation myocardial infarction (NSTEMI) Problem: Chronic (8) Hypercholesteremia Problem: Chronic (9) Insomnia Problem: Chronic Date of Discharge:: 05/30/20 Hospital Course: History obtained from ERP, patients grandson, and DC summary from [facility] last month. She was on an antibiotic, possible keflex for a UTI, but culture showed it was resistant to that antibiotic. Home health asked for her to be admitted for IV antibiotics. She was admitted to [facility] last month for cellulitis causing severe sepsis requiring pressors, NSTEMI started on amiodarone, dehydration, candidiasis of g roin, and altered mental status. DC summary states she finished her antibiotic course. Her grandson reports she had complained of some painful urination, and UA and urine culture drawn 05/25 were positive for pseudomonas aeruginosa. He also states she has been more tired since leaving the hospital last month. She was in sinus bradycardia with HR in the 50's, so amiodarone was stopped. This may have been the source of her fatigue. Work up in the ED showed leukocyte esterase, 3+ bacteria, blood, but negative for nitrates. WBC normal at 8.2, neutrophils barely high at 75.2. Her BP has been low, as low as 83/51. Her BP was also low when she was at [facility], and I believe that is her baseline. Lactate not elevated at 1.3. Her grandson stayed with her during her entire stay, and was able to help her take meds like tylenol. She did respond to questions from staff. She was given 3 days of zosyn until the urine culture resulted, also showing pseudomonas. She was given a dose of fosfomycin, which completes her antibiotic course. She had some constipation this morning, so will add senna to her meds. This, and discontinuation of amiodarone, are the only medication changes. Discussion was head regarding possible longterm placement, but family may have difficulty financing it. They also would only accept this if a family member was able to stay with her at all times. 35 minutes spent on this discharge to include interview, physical exam, note writing, and care planning with case management. Procedures Performed: none Results and Findings: Pending Mircobiology Results 05/27/20 16:26 Blood Blood Culture - Preliminary NO GROWTH AFTER 48 HOURS 05/27/20 14:00 Blood Blood Culture - Preliminary NO GROWTH AFTER 48 HOURS Lab Pending Results 05/27/20 14:00: WBC 8.2, RBC 4.50, Hgb 12.5, Hct 41.4, MCV 92.0, MCH 27.8, MCHC 30.2 L, RDW 15.9 H, Plt Count 430, MPV 10.4, Immature Gran % (Auto) 0.60 H, Immature Gran # (Auto) 0.05 H, Neutrophils % 75.2 H, Lymphocytes % 14.1 L, Monocytes % 8.0, Eosinophils % 1.5, Basophils % 0.6, Nucleated RBC % 0.0, Neutrophils # 6.2 H, Lymphocytes # 1.16 L, Monocytes # 0.7, Eosinophils # 0.1, Absolute Basophils 0.1 05/27/20 14:00: Sodium 138, Plasma Sodium 138, Potassium 4.7 H, Chloride 100, Carbon Dioxide 32.2, Anion Gap 10.5, BUN 26 H D, Creatinine 1.13, Est GFR (Non- Af Amer) 49 L, BUN/Creatinine Ratio 23.0 H, Random Glucose 98, Calcium 9.1, C alcium Adj for Albumin 9.5, Total Bilirubin 0.3, AST 48, ALT 38, Alkaline Phosphatase 77, Total Protein 7.3, Albumin 3.1 L 05/27/20 14:00: Lactic Acid, Venous 1.3 05/27/20 14:00: Procalcitonin Less than 0.05 L 05/27/20 16:05: Urine Color Yellow, Urine Appearance Cloudy, Urine pH 7.5, Ur Specific [place] 1.015, Urine Protein 30 H, Urine Glucose (UA) Negative, Urine Ketones Negative, Urine Blood 50 H, Urine Nitrate Negative, Urine Bilirubin Negative, Urine Urobilinogen Normal, Ur Leukocyte Esterase 100 H, Urine RBC 10- 25 H, Urine WBC >50 H, Ur Epithelial Cells None seen, Urine Bacteria 3+ H, Urine Culture Comments Culture to follow 05/27/20 16:49: SARS-CoV-2 (PCR) Not detected 05/28/20 07:19: WBC 5.6 D, RBC 3.90 L, Hgb 11.0 L, Hct 35.9 L, MCV 92.1, MCH 28.2, MCHC 30.6 L, RDW 15.8 H, Plt Count 371, MPV 10.0, Immature Gran % (Auto) 0.50 H, Immature Gran # (Auto) 0.03, Neutrophils % 64.9, Lymphocytes % 21.0, Monocytes % 10.0 H, Eosinophils % 2.7, Basophils % 0.9, Nucleated RBC % 0.0, Neutrophils # 3.6, Lymphocytes # 1.18 L, Monocytes # 0.6, Eosinophils # 0.2, Abs olute Basophils 0.1 05/28/20 07:19: Sodium 142, Plasma Sodium 142, Potassium 4.3, Chloride 107 H, Carbon Dioxide 30.3, Anion Gap 9.0, BUN 21, Creatinine 1.08, Est GFR (Non-Af Amer) 51 L, BUN/Creatinine Ratio 19.4, Random Glucose 77, Calcium 8.5, Calcium Adj for Albumin 9.4, Total Bilirubin 0.3, AST 35, ALT 32, Alkaline Phosphatase 62, Total Protein 5.4 L, Albumin 2.5 L Discharge Location: Home Disposition: Home Health Service Condition: Fair Discharge Activity: Activity as tolerated Discharge Diet: General/regular food Referrals: Rosina Mesa FNP [Primary Care Provider] - One Week (OK to do video visit. Family may have difficulty bringing her to an appointment) Additional Patient Instructions (free text): [facility] Home Health on going. Prescriptions (Any new or edited meds): Sennosides [Senna] 8.6 mg PO DAILY PRN #30 cap PRN Reason: Constipation Transmission Status: Pending to [place], [place] Complete Home Medications List: Complete Home Medication List: Acetaminophen [Tylenol] 500 mg PO Q6H PRN 09/06/17 furosemide 20 mg tablet 20 mg PO DAILY #30 tab 05/10/20 potassium chloride 20 mEq tablet,extended release 20 meq PO DAILY #30 tab 05/10/20 Aspirin [Aspirin EC] 325 mg PO DAILY 05/27/20 Docusate Sodium 100 mg PO DAILY PRN 05/27/20 Sennosides [Senna] 8.6 mg PO DAILY PRN #30 cap 05/30/20 Forms: Patient Portal Registration
[2020-05-30 11:23] VITALS: BP 100/64
== END 2020-05-30 11:35 | disposition home health service (06) | DRG 690 ==
LOC: MS 15:06 → ER 15:06
PROVIDERS: ADMIT Family Medicine; ATTEND Family Medicine
DX: I48.91 Unspecified atrial fibrillation; G47.00 Insomnia, unspecified; N39.0 Urinary tract infection, site not specified; E78.00 Pure hypercholesterolemia, unspecified; F03.90 Unspecified dementia, unspecified severity, without behavioral disturbance, psychotic disturbance, mood disturbance, and anxiety; Z16.30 Resistance to unspecified antimicrobial drugs; I25.2 Old myocardial infarction; R00.1 Bradycardia, unspecified; B96.5 Pseudomonas (aeruginosa) (mallei) (pseudomallei) as the cause of diseases classified elsewhere; I95.9 Hypotension, unspecified; E87.5 Hyperkalemia